=== PATIENT | male | born 1935 | race Caucasian/White ===

== ENCOUNTER 2022-12-27 05:46 | Observation (INO) | payer MEDICARE, OTHER, SELFPAY ==
[2022-12-27] VITALS (38 sets, daily range): BP systolic 97–147; BP diastolic 61–86; PULSE 64–86; RESP 11–27; TEMP 36.4–37; O2SAT 93–100; BMI 25.8; BMI 27.0
--- NOTE | 2022-12-27 06:06 | PC.NURSE ---
Patient c/o chest pain since last night. states it was bothering him all night and wouldn't let him sleep. denies any nausea, vomiting, diphoresis. pain has since resolved but states he cannot relax. denies any radiation into extremities or numbness, slight tingling in left hand states he thinks it feels a little funny. denies any urinary issues. no swelling of extremities. denies cardiac hx. denies any recent illnesses
--- NOTE | 2022-12-27 06:11 | ECG_ITS ---
The [facility] Test Date: 2022-12-27 Pat Name: Bry Rodriguez Department: Room: - Gender: Male [employer]: : 1935 Requested By: MED TUCKER Order Number: [id number] Reading MD: KEYONA GTZ Measurements Intervals [place] Rate: 77 P: 57 AR: 168 QRS: -42 QRSD: 78 T: 38 QT: 378 QTc: 409 Interpretive Statements 1100 Sinus rhythm 3234 Anteroseptal myocardial infarction, age undetermined 7200 Abnormal left axis deviation 8102 Low QRS voltage in chest leads 9150 abnormal ECG No previous ECG available for comparison Electronically Signed On 12-29-2022 18:37:22 EDT by KEYONA GTZ
--- NOTE | 2022-12-27 06:11 | XR_ITS ---
The [address] [address] Patient Name: JAE LENZ MRN: [id number] date: 1935 Sex: M Assigned Patient Location: ER Current Patient Location: ER Accession/Order Number: [id number] Exam Date: 12/27/2022 06:40 Report Date: 12/27/2022 06:52 At the request of: MEENAKSHI MARKER Procedure: XR chest 1V EXAMINATION: XR chest 1V HISTORY: CP ; acute chest pain COMPARISON: No relevant comparison available. FINDINGS: LUNGS: No appreciable infiltrates. Surgical clips project over lower right lung base. Small calcified granuloma within lateral left midlung. VASCULATURE: No increased pulmonary vasculature. PLEURA: No pneumothorax, effusion, or pleural thickening. CARDIAC: No cardiomegaly or cardiac silhouette abnormality. MEDIASTINUM: No visible mass or adenopathy. BONES: No fracture or visible bone lesion. OTHER: Negative. XR/XR chest 1V IMPRESSION: 1. No acute cardiopulmonary process. Electronically authenticated by: LUIS MARLEY Date: 12/27/2022 06:52
--- NOTE | 2022-12-27 06:16 | ED.CHESTPAI1 ---
HPI - Chest Pain General Chief Complaint: Chest Pain Stated Complaint: CHEST PAIN Time Seen by Provider: 12/27/22 05:56 Source: patient Mode of arrival: Wheelchair History of Present Illness HPI narrative: His 87-year-old male presents for evaluation of chest tightness. The patient states that he has not been to sleep all night he cause he could not relax due to this tightness in his chest. He denies any radiation into his arm back or jaw but when pressed he said his left hand does feel kind of funny. When I asked him what funny meant he said kind of tingly. He denies any shortness of breath dizziness or diaphoresis. He has no abdominal pain. He has some low back pain which is chronic in nature. He denies a history of coronary artery disease, tobacco use or alcohol use. The patient's daughter caught him to the emergency department and gave him 325 mg aspirin prior to arrival. At the time of my exam he denies that he is having any chest pain. He states he just could not get comfortable enough to sleep which bothered him. His Significant other and daughter accompanied him to the emergency department and was able to provide additional history. According to his significant other, last Friday they were doing their usual routine of exercising and then going to eat at [employer]. The patient went into the bathroom about [place] and came out and was very pale and weak. His girlfriend drove him home and on the way home he started becoming nauseated and had multiple episodes of vomiting. Those symptoms only lasted 1 day but the patient has been having episodes where he is just wiped out during the day and other days he is alert active and at his normal energy level. He also had 2 stents placed in a [facility] over 11 years ago. Related Data Home Medications Medication Instructions Recorded Confirmed atorvastatin 80 mg tablet mg 12/27/22 carvedilol 3.125 mg tablet mg 12/27/22 clopidogrel 75 mg tablet mg 12/27/22 fluoxetine 20 mg capsule mg 12/27/22 lisinopril 5 mg tablet mg 12/27/22 Allergies Allergy/AdvReac Type Severity Reaction Status Date / Time No Known Drug Allergies Allergy Verified 12/27/22 05:58 Review of Systems ROS Status of ROS 10 or more systems reviewed and unremarkable except as noted in history and below PFSH PFS Social History Smoking status: Never smoker Exam Narrative Exam Narrative: Nurses note and vital signs reviewed and patient is not hypoxic. General: The patient appears well and in no apparent distress. Patient is resting comfortably on cart. Skin: Warm, dry, no pallor noted. There is no rash noted. Head: Normocephalic, atraumatic Eye: Normal conjunctiva, no drainage, EOMI. PERRL Ears, Nose, Mouth, and Throat: oral mucosa is moist. Nares patent. Cardiovascular: Regular Rate and Rhythm S1S2, pulses are brisk and equal bilaterally, no chest wall tenderness, skin rash or crepitus Respiratory: Patient is in no distress, no accessory muscle use, lungs are clear to auscultation, no wheezing, rales or rhonchi Back: non-tender, no CVA tenderness bilaterally to percussion. GI: Normal bowel sounds, no tenderness to palpation, no masses appreciated. No rebound, guarding, or rigidity noted. no pulsatile masses or abdominal bruits appreciated Musculoskeletal: The patient has no evidence of calf tenderness, no pitting edema, symmetrical pulses noted bilaterally Neurological: A&O x4, normal speech, no focal deficits Psychiatric: Cooperative Constitutional Vital Signs, click to edit/add: Last Vital Signs Temp 97.6 F 12/27/22 05:50 Pulse 79 12/27/22 05:50 Resp 16 12/27/22 05:50 BP 128/79 12/27/22 05:50 Pulse Ox 100 12/27/22 05:50 O2 Del Method Room Air 12/27/22 05:50 Course Vital Signs Vital signs: Vital Signs Temperature 97.6 F 12/27/22 05:50 Pulse Rate 79 12/27/22 05:50 Respiratory Rate 16 12/27/22 05:50 Blood Pressure 128/79 12/27/22 05:50 Pulse Oximetry 100 12/27/22 05:50 Oxygen Delivery Method Room Air 12/27/22 05:50 Temperature 97.6 F 12/27/22 05:50 Pulse Rate 79 12/27/22 05:50 Respiratory Rate 16 12/27/22 05:50 Blood Pressure 128/79 12/27/22 05:50 Pulse Oximetry 100 12/27/22 05:50 Oxygen Delivery Method Room Air 12/27/22 05:50 MDM - Chest Pain MDM Narrative Medical decision making narrative: This 87-year-old male is brought emergency department by his daughter and accompanied by his female networking administrator for evaluation of chest pain. The pain started last night and the patient describes it as tightness. He denies any radiation but when pressed states that his left arm does feel funny. He denies any shortness of breath dizziness or syncope. He did have an episode approximately one week ago after a busy day when he became extremely weak and had multiple episodes of vomiting. That only lasted 1 day. His daughter states that some days he is very weak and can barely perform his ADLs and at other times he has active and alert. Last night the patient could not sleep because he states his chest tightness could not let him relax and he felt like something was banging on his right leg. He does not have the sensation that anything is banging on his right leg at this time. He was given 324 mg baby aspirin prior to arrival. On arrival an EKG was placed it was a sinus rhythm at 77 bpm with a left axis and Q waves in leads 3 and aVF and V1, V2, V3. He has a normal troponin, CBC w diff and Comprehensive metabolic profile. D dimer is mildly elevated. CT angio of chest, abdomen and pelvis is ordered. He will be signed out to the incoming physician at 7am. Lab Data Labs: Lab Results 12/27/22 Range/Units 06:00 WBC 6.6 (4.0-11.0) 10^3/uL RBC 4.24 L (4.70-6.10) 10^6/uL Hgb 13.3 L (14.0-18.0) g/dL Hct 39.1 L (42.0-54.0) % MCV 92.2 (80.0-94.0) fL MCH 31.4 (25.9-34.0) pg MCHC 34.0 (29.9-35.2) g/dL RDW 13.5 (11.0-15.0) % Plt Count 205 (150-450) 10^3/uL MPV 8.9 L (9.5-13.5) fL Neut % (Auto) 60.1 (43.0-75.0) % Lymph % (Auto) 28.9 (20.5-60.0) % Greenlee % (Auto) 8.5 (1.7-12.0) % Eos % (Auto) 1.8 (0.9-7.0) % Baso % (Auto) 0.5 (0.2-2.0) % Neut # (Auto) 3.9 (1.4-6.5) 10^3/uL Lymph # (Auto) 1.9 (1.2-3.8) 10^3/uL Greenlee # (Auto) 0.6 (0.3-0.8) 10^3/uL Eos # (Auto) 0.1 (0.0-0.7) 10^3/uL Baso # (Auto) 0.0 (0.0-0.1) 10^3/uL Abs Immat Gran (auto) 0.01 (0.00-0.03) 10^3/uL Imm/Tot Granulo (auto) 0.2 (0.0-0.5) % PT 11.2 (9.0-11.6) sec INR 1.06 D-Dimer 0.76 H* (<=0.59) mg/L FEU Sodium 139 (136-145) mmol/L Potassium 4.2 (3.5-5.1) mmol/L Chloride 101 (98-107) mmol/L Carbon Dioxide 28.0 (21.0-32.0) mmol/L Anion Gap 14.2 BUN 25.0 H (7.0-18.0) mg/dL Creatinine 1.35 H (0.70-1.30) mg/dL Est GFR ( Amer) >60 (>=60) Est GFR (Non-Af Amer) 50 L (>=60) BUN/Creatinine Ratio 18.5 Glucose 139 H (74-106) mg/dL Calcium 8.9 (8.5-10.1) mg/dL Total Bilirubin 0.5 (0.2-1.0) mg/dL AST 18 (15-37) U/L ALT 26 (16-63) U/L Alkaline Phosphatase 77 (46-116) U/L Troponin I High Sens 16.1 (4.0-76.1) pg/mL NT-Pro-B Natriuret Pep 129.0 (<=1800.0) pg/mL Total Protein 7.5 (6.4-8.2) g/dL Albumin 3.8 (3.4-5.0) g/dL Globulin 3.7 g/dL Albumin/Globulin Ratio 1.0 ECG Data Attestation: I personally reviewed and interpreted this ECG as follows: (Sinus rhythm at 77 beats for minute, Q wave noted in lead 3 and aVF, and V1, V2, V3, no acute ST segment elevation or T wave inversion) Heart Score History: Moderatly Suspicious ECG: Normal Age: >65 years Risk Factors: 1 or 2 Risk Factors Troponin: <Normal Limit Total Heart Score Recommendations & Risks:: 4 Discharge Plan Discharge Chief Complaint: Chest Pain Clinical Impression: Chest pain Patient Disposition: Still a Patient Prescriptions / Home Meds: No Action atorvastatin 80 mg tablet clopidogrel 75 mg tablet carvedilol 3.125 mg tablet lisinopril 5 mg tablet fluoxetine 20 mg capsule Referrals: MED TUCKER [Primary Care Provider] - 1 week
[2022-12-27 06:19] LABS: Basophils Percent Auto 0.5 % (0.2-2.0); Eosinophils Absolute Auto 0.1 10^3/uL (0.0-0.7); Eosinophils Percent Auto 1.8 % (0.9-7.0); Hematocrit 39.1 % (42.0-54.0); Hemoglobin 13.3 g/dL (14.0-18.0); Immature Granulocytes Abs Auto 0.01 10^3/uL (0.00-0.03); Immature Granulocytes Pct Auto 0.2 % (0.0-0.5); Lymphocytes Absolute Auto 1.9 10^3/uL (1.2-3.8); Lymphocytes Percent Auto 28.9 % (20.5-60.0); Mean Corpuscular Hemoglobin 31.4 pg (25.9-34.0); Mean Corpuscular Volume 92.2 fL (80.0-94.0); Mean Platelet Volume 8.9 fL (9.5-13.5); Monocytes Absolute Auto 0.6 10^3/uL (0.3-0.8); Monocytes Percent Auto 8.5 % (1.7-12.0); Neutrophils Absolute Auto 3.9 10^3/uL (1.4-6.5); Neutrophils Percent Auto 60.1 % (43.0-75.0); Platelet Count 205 10^3/uL (150-450); Red Blood Count 4.24 10^6/uL (4.70-6.10); Red Cell Distribution Width 13.5 % (11.0-15.0); White Blood Count 6.6 10^3/uL (4.0-11.0)
[2022-12-27 06:34] LABS: Alanine Aminotransferase 26 U/L (16-63); Albumin Level 3.8 g/dL (3.4-5.0); Alkaline Phosphatase 77 U/L (46-116); Anion Gap 14.2; Aspartate Amino Transferase 18 U/L (15-37); BUN Creatinine Ratio 18.5; Bilirubin Total 0.5 mg/dL (0.2-1.0); Calcium 8.9 mg/dL (8.5-10.1); Chloride 101 mmol/L (98-107); Estimated GFR (African America >60 (>=60); Estimated GFR (Non-African Ame 50 (>=60); Globulin 3.7 g/dL; Glucose 139 mg/dL (74-106); INR 1.06; Potassium 4.2 mmol/L (3.5-5.1); Prothrombin Time 11.2 sec (9.0-11.6); Sodium 139 mmol/L (136-145); Total Protein 7.5 g/dL (6.4-8.2)
[2022-12-27] MEDS: NITROGLYCERIN 0.4 MG BOTTLE PO (06:34)
[2022-12-27] MEDS: ACETAMINOPHEN 325 MG TABLET 650 MG PO (06:34)
[2022-12-27 06:40] LABS: Troponin I High Sensitivity 16.1 pg/mL (4.0-76.1)
[2022-12-27 06:43] LABS: D Dimer 0.76 mg/L FEU (<=0.59)
--- NOTE | 2022-12-27 06:50 | CT_ITS ---
[address] [address] Patient Name: JAE LENZ MRN: [id number] date: 1935 Sex: M Assigned Patient Location: ER Current Patient Location: Accession/Order Number: [id number] Exam Date: 12/27/2022 07:16 Report Date: 12/27/2022 08:19 At the request of: MEENAKSHI MARKER Procedure: CT angio chest EXAMINATION: CT angio chest, CT angio abdomen pelvis HISTORY: CP ; chest pain COMPARISON: No relevant comparison available. TECHNIQUE: After obtaining the patient's consent, CT images of the chest, abdomen and pelvis were obtained with non-ionic intravenous contrast material. Axial, Coronal, and Sagittal images. Multi-planar reformatted/3-D images were created to optimize visualization of vascular anatomy. Dose reduction techniques were achieved by using automated exposure control and/or adjustment of mA and/or kV according to patient size and/or use of iterative reconstruction technique. FINDINGS: PULM VASC: No pulmonary embolism or abnormal opacity. LUNGS: Mild opacities within the dependent lung regions favoring atelectasis over infiltrates. A few scattered calcified granulomas. PLEURA: No mass, effusion, or pneumothorax. ALBERTINA: No mass or adenopathy. MEDIASTINUM: No mass or adenopathy. CARDIAC: Mild cardiomegaly. No pericardial effusion. CHEST WALL: No mass or axillary adenopathy. AORTA/VASCULAR: No aneurysm or dissection. CELIAC ARTERY: Normal celiac vessels. SMA: Normal mesenteric vessels. RENAL ARTERIES: Mild atherosclerotic narrowing at their origins. LIVER: No enlargement, atrophy, abnormal density, or significant focal lesion. BILIARY: No visible dilatation or calcification. PANCREAS: No lesion, fluid collection, ductal dilatation, or atrophy. SPLEEN: No enlargement or focal lesion. ADRENALS: No mass or enlargement. KIDNEYS: Cortical thinning bilaterally. Complex left renal cysts, but favoring benign etiology. A few small nonobstructing calcifications. BOWEL/MESENTERY: Large hiatal hernia. No visible mass, obstruction, or bowel wall thickening. AORTA: RETROPERITONEUM: No mass or adenopathy. LYMPHNODES: No lymphadenopathy. BLADDER: No stones or focal wall thickening. PELVIC ORGANS: Appropriate for age. ABDOMINAL WALL: No mass or hernia. BONES: Left convex curvature of lumbar spine. Intervertebral disc spacers L2-3, L3-4, L4-5. Marked disc space narrowing L1-2, L5-S1. 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 Posterior decompression is removal of the majority the posterior elements involving L2-3-4. OTHER: Negative. CT/CT angio chest IMPRESSION: 1. No pulmonary embolism or acute chest findings to account for patient's symptoms. Chronic changes noted above. 2. No aortic dissection or aneurysm. 3. Nonobstructing nephrolithiasis; incidental complex cysts, and age-related cortical thinning. 4. No acute abdominal or pelvic findings to account for patient's symptoms. 5. Marked degenerative changes and prior surgical changes of the lumbar spine. No appreciable acute findings. Electronically authenticated by: LUIS MARLEY Date: 12/27/2022 08:19
--- NOTE | 2022-12-27 06:50 | CT_ITS ---
[address] [address] Patient Name: JAE LENZ MRN: [id number] date: 1935 Sex: M Assigned Patient Location: ER Current Patient Location: Accession/Order Number: [id number] Exam Date: 12/27/2022 07:16 Report Date: 12/27/2022 08:19 At the request of: MEENAKSHI MARKER Procedure: CT angio abdomen pelvis EXAMINATION: CT angio chest, CT angio abdomen pelvis HISTORY: CP ; chest pain COMPARISON: No relevant comparison available. TECHNIQUE: After obtaining the patient's consent, CT images of the chest, abdomen and pelvis were obtained with non-ionic intravenous contrast material. Axial, Coronal, and Sagittal images. Multi-planar reformatted/3-D images were created to optimize visualization of vascular anatomy. Dose reduction techniques were achieved by using automated exposure control and/or adjustment of mA and/or kV according to patient size and/or use of iterative reconstruction technique. FINDINGS: PULM VASC: No pulmonary embolism or abnormal opacity. LUNGS: Mild opacities within the dependent lung regions favoring atelectasis over infiltrates. A few scattered calcified granulomas. PLEURA: No mass, effusion, or pneumothorax. ALBERTINA: No mass or adenopathy. MEDIASTINUM: No mass or adenopathy. CARDIAC: Mild cardiomegaly. No pericardial effusion. CHEST WALL: No mass or axillary adenopathy. AORTA/VASCULAR: No aneurysm or dissection. CELIAC ARTERY: Normal celiac vessels. SMA: Normal mesenteric vessels. RENAL ARTERIES: Mild atherosclerotic narrowing at their origins. LIVER: No enlargement, atrophy, abnormal density, or significant focal lesion. BILIARY: No visible dilatation or calcification. PANCREAS: No lesion, fluid collection, ductal dilatation, or atrophy. SPLEEN: No enlargement or focal lesion. ADRENALS: No mass or enlargement. KIDNEYS: Cortical thinning bilaterally. Complex left renal cysts, but favoring benign etiology. A few small nonobstructing calcifications. BOWEL/MESENTERY: Large hiatal hernia. No visible mass, obstruction, or bowel wall thickening. AORTA: RETROPERITONEUM: No mass or adenopathy. LYMPHNODES: No lymphadenopathy. BLADDER: No stones or focal wall thickening. PELVIC ORGANS: Appropriate for age. ABDOMINAL WALL: No mass or hernia. BONES: Left convex curvature of lumbar spine. Intervertebral disc spacers L2-3, L3-4, L4-5. Marked disc space narrowing L1-2, L5-S1. 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 Posterior decompression is removal of the majority the posterior elements involving L2-3-4. OTHER: Negative. CT/CT angio abdomen pelvis IMPRESSION: 1. No pulmonary embolism or acute chest findings to account for patient's symptoms. Chronic changes noted above. 2. No aortic dissection or aneurysm. 3. Nonobstructing nephrolithiasis; incidental complex cysts, and age-related cortical thinning. 4. No acute abdominal or pelvic findings to account for patient's symptoms. 5. Marked degenerative changes and prior surgical changes of the lumbar spine. No appreciable acute findings. Electronically authenticated by: LUIS MARLEY Date: 12/27/2022 08:19
[2022-12-27] MEDS: ONDANSETRON PF 4 MG/2 ML VIAL IV (07:04)
[2022-12-27] MEDS: 0.9 % SODIUM CHLORIDE 1,000 ML 125 ML IV ×2 (07:05→11:53)
[2022-12-27] MEDS: 0.9 % SODIUM CHLORIDE 500 ML IV (07:05)
--- NOTE | 2022-12-27 07:41 | PC.NURSE ---
pt back from radiology at this time, states chest pain is now completely gone. Informed Dr Zazueta
[2022-12-27 09:18] LABS: Troponin I High Sensitivity 14.5 pg/mL (4.0-76.1)
--- NOTE | 2022-12-27 10:28 | CA_ITS ---
Patient: JAE LENZ Exam Date: 12/27/2022 : 1935 Gender:M Ordering : SAURABH LE . Admission #: [id number] Family : DR MED TUCKER M.D. Order #: [id number] CLICK HERE TO VIEW EXAM ECHOCARDIOGRAM REPORT PROCEDURE: CA ECHO DOPPLER COMPLETE INDICATIONS: chest pain, history of CAD COMPARISON: None. DESCRIPTION: COMPLETE ECHOCARDIOGRAM Real-time transthoracic echocardiography with 2D, M-mode, spectral and color flow Doppler performed. QUALITY: Technical quality was good. LEFT VENTRICLE: Normal chamber size. Mild concentric left ventricular hypertrophy. LV EF: Global left ventricular systolic function is normal. Calculated left ventricular ejection fraction is 58% DIASTOLIC: Diastolic function is indeterminate. ATRIAL SEPTUM: Inadequately seen. LEFT ATRIUM: Mild dilatation. RIGHT ATRIUM: Moderate dilatation. RIGHT VENTRICLE: Normal chamber size. Normal right ventricular systolic function. TRICUSPID VALVE: Normal mobility and thickness. No stenosis with trivial regurgitation. No evidence of pulmonary hypertension. RVSP 30mmHg MITRAL VALVE: Normal mobility and thickness. No evidence of mitral valve stenosis. There is no mitral annular calcification. Trivial mitral regurgitation. AORTIC VALVE: Normal trileaflet appearance. Mildly calcified aortic valve. No evidence of aortic valve stenosis. DVI 0.5, DIAN 1.8cm2. Mild aortic regurgitation. AORTIC ROOT: Mildly dilated. Mild dilatation of the ascending aorta measuring 3.8cm. PULMONIC VALVE: Normal thickness and mobility. No stenosis. Trivial regurgitation. PERICARDIUM: Anterior free space; trivial effusion versus fat pad. IVC: Collapses with inspirations. Normal size. CONCLUSION: 1. Global left ventricular systolic function is normal; visually estimated ejection fraction is 55 to 60% 2. Mild left ventricular hypertrophy 3. Diastolic function is indeterminate 4. Biatrial enlargement 5. The right ventricle is normal in size and systolic function 6. Mild aortic valve regurgitation 7. Mildly enlarged aortic root and ascending aorta 8. Anterior free space; trivial effusion versus fat pad Adult Echocardiography Procedure Report Left Ventricle LVEDD (3.7 - 5.6 cm): 3.97 cm LVESD (2.2 - 4.0 cm): 2.58 cm LVIVS thickness (0.6 - 1.2 cm): 1.20 cm LVPW thickness (0.5 - 1.0 cm): 1.34 cm e': 0.08 m/s E - e': 6.19 LVOT Max Gradient: 1.62 mm[Hg] LVOT Area (cm2): 0.64 m/s Peak Velocity (LVOT): 0.64 m/s Mean Velocity (LVOT): 0.42 m/s LVOT Diameter 2.18 cm Left Ventricular Ejection Fraction: 57.81 % Left Atrium LA Volume Index (2D A2C): 37.03 ml/m2 Left Atrium Systolic Dimension: 2.87 cm Mitral Valve MV E to A Ratio: 0.55 Mitral Valve A-Wave Peak Velocity: 0.86 m/s Mitral Valve E-Wave Peak Velocity: 0.47 m/s Right Ventricle RV Internal Diastolic Dimension: 3.58 cm Aorta AO Root Diam: 3.72 cm Ascending Ao Diam: 3.83 cm Aortic Valve AoV Area (Peak Junior): 1.86 cm2, 1.84 cm2 AoV Area (VTI): 1.86 cm2, 1.82 cm2 Peak Velocity(Antegrade Flow): 1.30 m/s, 1.26 m/s Peak Gradient(Antegrade Flow): 6.72 mm[Hg], 6.39 mm[Hg] Mean Velocity(Antegrade Flow): 0.88 m/s, 0.88 m/s Mean Gradient(Antegrade Flow): 3.51 mm[Hg], 3.55 mm[Hg] Velocity Time Integral: 29.39 cm, 28.22 cm Tricuspid Valve Peak Velocity (Regurgitant Flow): 2.59 m/s, 2.25 m/s, 2.45 m/s Pulmonic Valve Mean Gradient: 1.25 mm[Hg], 1.65 mm[Hg] Mean Velocity: 0.52 m/s, 0.60 m/s Peak Velocity: 0.88 m/s Peak Gradient: 2.60 mm[Hg], 3.62 mm[Hg] Right Atrium Right Atrium Systolic Pressure: 50.62 ml, 50.62 ml Dictated by: Christy Rodriguez M.D. on 12/27/2022 at 15:51 Approved by: Christy Rodriguez M.D. on 12/27/2022 at 15:56
--- NOTE | 2022-12-27 11:10 | PM.HP ---
H&P: HPI History of Present Illness Chief complaint: CHEST PAIN Narrative: patient is a very pleasant 87-year-old male who presented to the Emergency Room with an episode of chest tightness. He presented last night with feeling of chest tightness and not being able to sleep. He denied any radiation into his arm back or jaw but does report his left hand felt different. He denies any shortness of breath any chest pain at the time of admission his chest pain seemed to resolve with a dose of nitroglycerin and morphine. He has a history of a transient ischemic attack but never seek hospitalization for this occurred about a year ago. He has a history of coronary artery disease with stents that were placed greater than ten years ago, and denies seeing a dynamometer tester engine recently for a stress test heart or further workup. He does follow regularly with Dr. Geronimo. Lately both significant other and daughter report he has felt more weak at times happy to take multiple breaks throughout the day and just appears wiped out by the end of the day. He reports compliance with his medications. Patient states he is ready to go home. Review of Systems ROS Narrative ROS: a complete review of systems were reviewed with patient and are positive as below or listed in History of Chief Complaint. General: no fever, chills, night sweats Head: no headache, trauma, visual changes, nausea or vomiting Skin: no reported rashes, itching or sores Eyes: no blurriness of vision Ears: no reported hearing loss, vertigo, earache, or tinnitus Throat: no sore throat, hoarseness, swelling of neck, or tongue pain Heart: chest pain, mid sternal, no radiation Lungs: no shortness of breath or cough GI: no diarrhea or vomiting/nausea Urinary: no urinary urgency, frequency or pain Neuro: no numbness or tingling HEM: no bleeding issues or bruising ENDO: no thyroid problems Psych: no anxiety or depression [facility] Medical History (Updated 12/27/22 @ 12:03 by Mary Lindo DO) Family History Mother Family history of CHF (congestive heart failure) Family history of myocardial infarction Social History Smoking status: Never smoker Meds Home Medications and Allergies Home Medications Medication Instructions Recorded Confirmed Type atorvastatin 80 mg tablet 80 mg PO QPM 12/27/22 12/27/22 History carvedilol 3.125 mg tablet mg 12/27/22 History clopidogrel 75 mg tablet mg 12/27/22 History fluoxetine 20 mg capsule mg 12/27/22 History lisinopril 5 mg tablet mg 12/27/22 History omeprazole 20 mg capsule,delayed 20 mg PO DAILY 12/27/22 12/27/22 History release Allergies Allergy/AdvReac Type Severity Reaction Status Date / Time No Known Drug Allergies Allergy Verified 12/27/22 05:58 Exam Narrative Exam Narrative: General: Patient is alert, and oriented to person, place and time with normal affect, proper hygiene Skin: no visible rashes, or ulcers Head: atraumatic, acephalic Eyes: PERRLA, no nystagmus present, conjunctiva clear, no scleral icterus Ears: normal Tympanic Membrane, normal gross auditory acuity Nose: symmetric, no discharge, no maxillary or frontal sinus tenderness Mouth/Throat: no erythema, exudate, or tonsillar enlargement Neck: no masses palpated, normal thyroid, no JVD or audible carotid bruits Heart: Normal rate and rhythm, no murmurs/rubs/gallops Lungs: no audible wheezes, crackles and normal breath sounds all lung lundberg Abdomen: Normal audible bowel sounds, no distension, No palpable masses, no organomegaly, no rebound/guarding/ or rigidity Musculoskeletal:ROM is limited due to being in hospital bed, no swelling bilateral lower extremities Lymph: no supraclavicular, axillary, or anterior/posterior cervical adenopathy Neuro: CN II-X grossly intact, normal sensation upper and lower extremities Constitutional Vital Signs, click to edit/add: Last Vital Signs Temp 98.6 F 12/27/22 10:23 Pulse 70 12/27/22 10:28 Resp 16 12/27/22 10:23 BP 123/81 12/27/22 10:23 Pulse Ox 98 12/27/22 10:23 O2 Del Method Room Air 12/27/22 10:23 Results Labs Labs: Short CBC 12/27/22 Range/Units 06:00 WBC 6.6 (4.0-11.0) 10^3/uL Hgb 13.3 L (14.0-18.0) g/dL Hct 39.1 L (42.0-54.0) % Plt Count 205 (150-450) 10^3/uL BMP 12/27/22 06:00 Sodium 139 Potassium 4.2 Chloride 101 Carbon Dioxide 28.0 BUN 25.0 H Creatinine 1.35 H Glucose 139 H Calcium 8.9 Liver Function 12/27/22 Range/Units 06:00 Total Bilirubin 0.5 (0.2-1.0) mg/dL AST 18 (15-37) U/L ALT 26 (16-63) U/L Alkaline Phosphatase 77 (46-116) U/L Albumin 3.8 (3.4-5.0) g/dL Assessment and Plan Assessment and Plan (1) Chest pain: Assessment and Plan: cardiac troponins ?2 have been negative we'll repeat a 3rd. D-dimer was positive patient had a CT of the chest which was negative for any PE or acute process. Chest x-ray was negative. EKG showed no acute changes. Patient was admitted to telemetry for further evaluation. We'll check echocardiogram. Patient does not establish with a dynamometer tester engine will get an appointment for urinary tract infection and see cardiology for outpatient stress test. Continue aspirin and Plavix and statin medication. Recheck lipid panel, thyroid-stimulating hormone, hemoglobin A1c. Patient received aspirin and nitroglycerin and morphine which all seem to resolve chest pain. With history of stents being greater than ten years would but most definitely benefit from an outpatient stress test and further workup. (2) Presence of stent in coronary artery in patient with coronary artery disease: Assessment and Plan: echocardiogram today, continue aspirin and Plavix and statin (3) Hypertension: Assessment and Plan: continue home medications (4) Hyperlipidemia: Assessment and Plan: recheck lipids continue home medications Plan patient is a full code Will continue Lovenox for deep vein thrombosis prophylaxis She has an observation status and cardiac workup is negative will follow-up closely with cardiology for outpatient Cardiolite stress test evaluation
[2022-12-27 11:13] LABS: Estimated Average Glucose 131 mg/dL; Glycohemoglobin A1C 6.2 % (4.5-6.2)
[2022-12-27 11:22] LABS: Chol HDL Ratio 4.2; Cholesterol 181 mg/dL (<=200); HDL Cholesterol 43 mg/dL (40-60); Magnesium 1.7 mg/dL (1.8-2.4); Triglycerides 261 mg/dL (<=150); VLDL CHOLESTEROL 52.2 mg/dL
[2022-12-27] MEDS: ENOXAPARIN SODIUM 40 MG/0.4 ML SYRINGE SUBQ (11:34)
[2022-12-27] MEDS: CLOPIDOGREL BISULFATE 75 MG TABLET PO (13:03)
[2022-12-27] MEDS: CARVEDILOL 3.125 MG TABLET PO (13:03)
[2022-12-27] MEDS: FLUOXETINE HCL 20 MG CAPSULE PO (13:03)
[2022-12-27] MEDS: LISINOPRIL 5 MG TABLET PO (13:04)
[2022-12-27] MEDS: OMEPRAZOLE 20 MG CAPSULE.DR PO (13:04)
--- NOTE | 2022-12-27 13:53 | SWNOTE1 ---
MARU met with pt, pt's daughter, and pt's friend. Pt has a rollator and cane at home that he uses if needed. Pt voiced he does stay active and he could not sleep last night. Had some chest pain and some pain in his leg. Pt voices he is feeling much better. Pt denies having any dc needs at this time. SW reviewed the COOL form with pt. Pt voices understanding and had no questions. Pt had his daughter sign as he was eating lunch. Copy placed in chart and original given to daughter. Pt's daughter did bring in POA paperwork, but it a general POA. She will bring in healthcare POA tomorrow.
[2022-12-27 15:22] LABS: Troponin I High Sensitivity 15.1 pg/mL (4.0-76.1)
--- NOTE | 2022-12-27 17:24 | PM.DS1 ---
DS: Providers Provider Date of admission: 12/27/22 10:08 Primary care physician: MED TUCKER Admitting clinician: Mary Lindo Consults: 12/27/22 10:28 Occupational Therapy Eval and Treat Routine Reason for consultation: weakness Has provider been notified: No Physical Therapy Eval and Treat Routine Reason for consultation: weakness Has provider been notified: No Discharging clinician: Mary Lindo DS: Diagnosis Discharge Diagnosis (1) Chest pain: (2) Presence of stent in coronary artery in patient with coronary artery disease: (3) Hypertension: (4) Hyperlipidemia: DS: Summary Hospital Course Hospital Course: echocardiogram showed normal ejection fraction of 55-60 percent with some mild left ventricular hypertrophy and some biatrial enlargement.chest CTA showed no acute findings.normal CBC CMP and coagulations. Slight elevation of creatinine at 1.35, hemoglobin A1c was 6.2, lipid panel was within normal limits with exception of elevated triglycerides at two sixty-one. Troponins normal ?3 and normal proBNP. Patient has been chest pain-free while admitted there is been no events on telemetry and EKG showed no acute findings. Patient would like to go home there has been no changes to his home medications. He has a follow-up next week with his primary care provider and we have also provided him a follow-up appointment with cardiology to establish care and to decide on doing an outpatient stress test. Patient and family aware and agree with plan. Return to the Emergency Room with any worsening symptoms. Status at Discharge Functional status at discharge: uses cane/walker Time Spent with Patient Time attestation: Total time spent providing and/or coordinating discharge services: Time spent: less than 30 minutes Exam Narrative Exam Narrative: no changes in physical exam at the time of discharge please see H and P dated 12/27/22 Constitutional Vital Signs, click to edit/add: Last Vital Signs Temp 97.7 F 12/27/22 16:39 Pulse 68 12/27/22 16:39 Resp 16 12/27/22 16:39 BP 122/75 12/27/22 16:39 Pulse Ox 97 12/27/22 16:39 O2 Del Method Room Air 12/27/22 16:39 DS: Data Data Completed and Pending Labs on day of discharge: Labs from last 24 hours 12/27/22 12/27/22 12/27/22 14:46 08:53 06:00 WBC 6.6 RBC 4.24 L Hgb 13.3 L Hct 39.1 L MCV 92.2 MCH 31.4 MCHC 34.0 RDW 13.5 Plt Count 205 MPV 8.9 L Neut % (Auto) 60.1 Lymph % (Auto) 28.9 Lamar % (Auto) 8.5 Eos % (Auto) 1.8 Baso % (Auto) 0.5 Neut # (Auto) 3.9 Lymph # (Auto) 1.9 Lamar # (Auto) 0.6 Eos # (Auto) 0.1 Baso # (Auto) 0.0 Abs Immat Gran (auto) 0.01 Imm/Tot Granulo (auto) 0.2 PT 11.2 INR 1.06 D-Dimer 0.76 H* Sodium 139 Potassium 4.2 Chloride 101 Carbon Dioxide 28.0 Anion Gap 14.2 BUN 25.0 H Creatinine 1.35 H Est GFR ( Amer) >60 Est GFR (Non-Af Amer) 50 L BUN/Creatinine Ratio 18.5 Glucose 139 H Estimat Average Glucose 131 Hemoglobin A1c 6.2 Calcium 8.9 Magnesium 1.7 L Total Bilirubin 0.5 AST 18 ALT 26 Alkaline Phosphatase 77 Troponin I High Sens 15.1 14.5 16.1 NT-Pro-B Natriuret Pep 129.0 Total Protein 7.5 Albumin 3.8 Globulin 3.7 Albumin/Globulin Ratio 1.0 Triglycerides 261 H Cholesterol 181 LDL Cholesterol, Calc 86.0 VLDL Cholesterol 52.2 HDL Cholesterol 43 Cholesterol/HDL Ratio 4.2 TSH 9.559 H Discharge Plan Discharge Disposition: Home Health Service Discharge Medications: Continued atorvastatin 80 mg tablet 80 mg PO QPM clopidogrel 75 mg tablet 75 mg PO DAILY carvedilol 3.125 mg tablet 3.125 mg PO Q12H lisinopril 5 mg tablet 5 mg PO DAILY fluoxetine 20 mg capsule 20 mg PO DAILY omeprazole 20 mg capsule,delayed release(DR/EC) 20 mg PO DAILY Activity: resume usual activities as tolerated Diet: advance to your usual diet Forms: Portal Instructions Follow Up Appointments: [facility] Cardiology FridayDecember [address] Tucker keep upcoming appointment for follow up.
--- NOTE | 2022-12-31 15:41 | CM.DCFOLLOWU ---
1st attempt discharge follow up call made by Benji Galaviz on 12/31/22, no answer at this time
--- NOTE | 2023-01-01 16:06 | CM.DCFOLLOWU ---
2nd attempt discharge follow up call made by Benji Galaviz on , no answer at this time.
--- NOTE | 2023-01-03 15:46 | CM.DCFOLLOWU ---
3 discharge follow up calls were attempted, no answer each time.
== END 2022-12-27 20:03 | disposition home health service (06) ==
LOC: ER 07:11 → ICU 10:11
PROVIDERS: Emergency Medicine; Admitting Provider Family Medicine; Emergency Provider Emergency Medicine; PCP Internal Medicine; Visit Provider Family Medicine
DX: R07.9 Chest pain, unspecified (principal); I10 Essential (primary) hypertension; E78.5 Hyperlipidemia, unspecified; I25.10 Atherosclerotic heart disease of native coronary artery without angina pectoris; Z95.5 Presence of coronary angioplasty implant and graft; Z86.73 Personal history of transient ischemic attack (TIA), and cerebral infarction without residual deficits; Z79.899 Other long term (current) drug therapy; Z79.02 Long term (current) use of antithrombotics/antiplatelets
CPT/HCPCS: 36415; 71045; 71275; 74174; 80053; 80061; 83036; 83735; 83880; 84443; 84484; 85025; 85378; 85610; 93005; 93306; 94761; 96372; 96374; 97161; 97165; 99285; G0378; Q9967

== ENCOUNTER 2023-01-21 06:30 | Outpatient (OUT) | payer MEDICARE, OTHER, SELFPAY | END 2023-01-21 06:31 | disposition home or self-care (01) | LOC: NM 06:30 | PROVIDERS: PCP Internal Medicine; Visit Provider Internal Medicine Cardiovascular Disease | DX: R07.9 Chest pain, unspecified (principal) ==

== ENCOUNTER 2023-01-21 08:42 | Emergency (ER) | payer MEDICARE, OTHER, SELFPAY ==
[2023-01-21] VITALS (10 sets, daily range): BP systolic 135–168; BP diastolic 80–96; PULSE 62–72; RESP 14–20; TEMP 36.4; O2SAT 95–98; BMI 26.5
--- NOTE | 2023-01-21 08:54 | ECG_ITS ---
[facility] Test Date: 2023-01-21 Pat Name: JAE LENZ Department: Room: - Gender: Male Department Head: : 1935 Requested By: MED TUCKER Order Number: [id number] Reading MD: KEYONA GTZ Measurements Intervals [place] Rate: 67 P: 57 [place]: 172 QRS: 1 QRSD: 74 T: 26 QT: 400 QTc: 415 Interpretive Statements 1100 Sinus rhythm 8102 Low QRS voltage in chest leads 9120 atypical ECG Compared to ECG 12/27/2022 05:56:36 Myocardial infarct finding no longer present Left-axis deviation no longer present Electronically Signed On 01-22-2023 7:09:19 EDT by KEYONA GTZ
--- NOTE | 2023-01-21 08:56 | ED.GENADUL1 ---
HPI - General Adult General Chief complaint: Head Injury Stated complaint: FALL Time Seen by Provider: 01/21/23 08:43 Source: patient Mode of arrival: Wheelchair Limitations: no limitations History of Present Illness HPI narrative: Patient was at the hospital for out-patient testing - he was supposed to get non-treadmill stress test. He was walking and lost his footing and fell - he apparently has foot drop resulting in some difficulty ambulating. He will often use a cane or walker but did not bring either into the building with him. He fell forward, onto the carpeted floor and struck his face, causing a laceration on his right eyebrow. No LOC. No extremity injuries or other complaints. He takes Plavix daily. Related Data Home Medications Medication Instructions Recorded Confirmed atorvastatin 80 mg tablet 80 mg PO QPM 12/27/22 01/21/23 carvedilol 3.125 mg tablet 3.125 mg PO Q12H 12/27/22 01/21/23 clopidogrel 75 mg tablet 75 mg PO DAILY 12/27/22 01/21/23 fluoxetine 20 mg capsule 20 mg PO DAILY 12/27/22 01/21/23 lisinopril 5 mg tablet 5 mg PO DAILY 12/27/22 01/21/23 omeprazole 20 mg capsule,delayed 20 mg PO DAILY 12/27/22 01/21/23 release Allergies Allergy/AdvReac Type Severity Reaction Status Date / Time No Known Drug Allergies Allergy Verified 12/27/22 05:58 [facility] Medical History (Updated 01/21/23 @ 10:00 by Jeri Nash) Prostate cancer ?C61 - Malignant neoplasm of prostate (ICD-10) Surgical History (Updated 01/21/23 @ 09:05 by Hudson Sagastume) History of appendectomy ?Z90.49 - Acquired absence of other specified parts of digestive tract (ICD-10) History of lumbar fusion ?Z98.1 - Arthrodesis status (ICD-10) History of tonsillectomy ?Z90.89 - Acquired absence of other organs (ICD-10) Family History Mother Family history of CHF (congestive heart failure) Family history of myocardial infarction Social History Smoking status: Never smoker Exam Narrative Exam Narrative: Nurses note and vital signs reviewed and patient is not hypoxic. afebrile General: The patient appears well and in no apparent distress. Patient is resting comfortably on cart. GCS = 15. Skin: Warm, dry, no pallor noted. Head: 1cm laceration to the right upper eyelid just below the level of the eyebrow. Remainder of the face and scalp are normocephalic, atraumatic Neck: Supple, trachea mid-line. Full ROM and no cervical spinal tenderness. Eyes: PERRLA, EOMI ENT: TMs clear, no hemotympanum detected, no blood in posterior oropharynx Cardiovascular: Regular Rate and Rhythm Respiratory: Patient is in no distress, no accessory muscle use, lungs are clear to auscultation, no wheezing, rales or rhonchi Chest Wall: no tenderness, no flail chest, contusion, abrasion, or signs of trauma. Back: No thoracic or lumbar tenderness to palpation. Negative straight leg raise bilaterally. Musculoskeletal: no sign of long bone fracture, no tenderness, no swelling. Pulses at femoral, DP, PT, and popliteal were 2+ bilaterally. Moves all four extremities in all modalities with 5/5 strength. GI: Normal bowel sounds, no tenderness to palpation, no masses appreciated. No rebound, guarding, or rigidity noted. Neurological: A&O x4, normal equal silk folder strength, normal finger to nose, normal speech, normal coordination, normal motor, normal sensory. Psychiatric: Cooperative Constitutional Vital Signs, click to edit/add: Last Vital Signs Temp 97.6 F 01/21/23 08:46 Pulse 64 01/21/23 10:10 Resp 20 01/21/23 10:10 BP 168/84 H 01/21/23 10:00 Pulse Ox 97 01/21/23 10:10 O2 Del Method Nasal Cannula 01/21/23 08:46 Course Vital Signs Vital signs: Vital Signs Temperature 97.6 F 01/21/23 08:46 Pulse Rate 72 01/21/23 08:46 Respiratory Rate 16 01/21/23 08:46 Blood Pressure 167/80 H 01/21/23 08:46 Pulse Oximetry 98 01/21/23 08:46 Oxygen Delivery Method Nasal Cannula 01/21/23 08:46 Temperature 97.6 F 01/21/23 08:46 Pulse Rate 64 10/24/23 10:10 Respiratory Rate 20 01/21/23 10:10 Blood Pressure 168/84 H 01/21/23 10:00 Pulse Oximetry 97 01/21/23 10:10 Oxygen Delivery Method Nasal Cannula 01/21/23 08:46 Medical Decision Making MDM Narrative Medical decision making narrative: Patient takes Plavix daily. He fell and struck his face/head on the carpeted floor. Patient sent for CT scans of the head/brain and cervical spine, which were negative for worrisome pathology, per radiologist. Right eyebrow laceration sutured closed. See procedure note above. Patient and family informed of results and we discussed diagnosis and follow up plan. Patient discharged home with instructions for the patient to take his meds as prescribed. They are going to reschedule the stress test. Imaging Data ct cerv spine, ct brain: Radiologist's impression: Patient Name: JAE LENZ MRN: [id number] date: 1935 Sex: M Assigned Patient Location: ER Current Patient Location: ED.MAIN Accession/Order Number: [id number] Exam Date: 01/21/2023 09:05 Report Date: 01/21/2023 09:37 At the request of: JERI NASH Procedure: CT cervical spine wo con EXAM: CT head/brain wo con, CT cervical spine wo con HISTORY: fall, head injury, Atrovent fall, eyebrow laceration. COMPARISON: CT head 11/29/2021. TECHNIQUE: Axial noncontrast CT imaging of the head and cervical spine was performed with coronal and sagittal reformats. This CT exam was performed using one or more of the following dose reduction techniques: Automated exposure control, adjustment of the MA and/or kV according to patient size, or use of iterative reconstruction technique. FINDINGS: CT head Calvarium/skull base: Tiny soft tissue contusion along the right eyebrow with associated focus of subcutaneous emphysema likely relating to known laceration not all visualized by CT.] Grossly intact without orbital hematoma within the [id number]. No evidence of acute fracture or destructive lesion. Mastoids and middle ears demonstrate no substantial mucosal disease. Paranasal sinuses: No air fluid levels. Brain: No acute intracranial hemorrhage. No acute large vascular territory infarct. Similar mild patchy hypoattenuation involving the supratentorial white matter. Minimal parenchymal volume loss. 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 This is stable from prior. No mass lesion or mass effect. No hydrocephalus. CT cervical spine Alignment: There is 2 mm anterolisthesis of C4 on C5 and trace anterolisthesis of C5 on C6. Straightening of the normal cervical lordosis. Vertebrae: Vertebral body heights are maintained. No fracture. Diffuse osteopenia. There is fusion of the left knee to C3 facet joints and right C2-C4 facet joints. Craniocervical junction: No focal abnormality. Degenerative changes: Mild to moderate degenerative changes of cervical spine with multilevel small posterior disc osteophyte complexes and moderate uncovertebral arthropathy. Multilevel moderate and/or advanced facet arthropathy with associated multilevel moderate to advanced right greater than left foraminal stenosis. This is most prominent at C4-C5 and C5-C6. 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 Visualized portion of lung apices are clear. IMPRESSION: 1. No acute intracranial process. If there is clinical concern for acute ischemia recommend MRI brain for further evaluation. 2. Similar senescent change detailed above. 3. Trace right periorbital soft tissue contusion with multivessel subcutaneous emphysema likely relating to laceration. No evidence for orbital hematoma. No calvarial/facial bone fracture within the [id number]. 4. No acute fracture or malalignment of the cervical spine. 5. Diffuse osteopenia. 6. Moderate degenerative change of the cervical spine. Electronically authenticated by: MOI BERTRAND Date: 01/21/2023 09:37 ECG Data Attestation: ?I have reviewed the pertinent ECG results. Interpretation: EKG interpretation: Emergency Department physician interpretation. Normal sinus rhythm at 67bpm. low QRS voltage and chest leads, normal intervals and no ST segment elevation or depression. Discharge Plan Discharge Chief Complaint: Head Injury Clinical Impression: Closed head injury, Facial laceration Patient Disposition: Home, Self-Care Time of Disposition Decision: 10:00 Prescriptions / Home Meds: No Action atorvastatin 80 mg tablet 80 mg PO QPM clopidogrel 75 mg tablet 75 mg PO DAILY carvedilol 3.125 mg tablet 3.125 mg PO Q12H lisinopril 5 mg tablet 5 mg PO DAILY fluoxetine 20 mg capsule 20 mg PO DAILY omeprazole 20 mg capsule,delayed release(DR/EC) 20 mg PO DAILY Instructions: Laceration (ED), Head Injury (ED) Stand Alone Forms: Portal Instructions Referrals: MED TUCKER [Primary Care Provider] - 1 week Discharge Date/Time: 01/21/23 10:25 Procedures ED Laceration Laceration Laceration 1: Additional comments: Laceration repair: All of the procedure was done under sterile conditions. Wound cleansed with betadine and anesthetized with local injection of approximately 2mL of lidocaine 1% with/without epinephrine. The wound was irrigated copiously with sterile normal saline. The wound was explored to depth and found to be free of foreign material. The laceration wound edges were well-approximated and did not require revision. Wound closed with 2 sterile 4-0 ethilon sutures in simple interrupted fashion. Patient tolerated the procedure well. The patient was neurovascularly intact post-repair. Topical bacitracin applied to the laceration and it was dressed with a dry sterile dressing. The patient will need to follow-up in the next 7-10 days for removal.
[2023-01-21] MEDS: LIDOCAINE HCL 1% 100 MG/10 ML MDV INJ (09:34)
== END 2023-01-21 10:25 | disposition home or self-care (01) ==
PROVIDERS: Emergency Provider Emergency Medicine; PCP Internal Medicine
DX: S01.111A Laceration without foreign body of right eyelid and periocular area, initial encounter (principal); S09.8XXA Other specified injuries of head, initial encounter; Z79.02 Long term (current) use of antithrombotics/antiplatelets; Z79.899 Other long term (current) drug therapy; W19.XXXA Unspecified fall, initial encounter; C61 Malignant neoplasm of prostate; Z90.49 Acquired absence of other specified parts of digestive tract; Z98.1 Arthrodesis status; Z90.89 Acquired absence of other organs
CPT/HCPCS: 12011; 70450; 72125; 93005; 99284

== ENCOUNTER 2023-02-05 06:44 | Outpatient (OUT) | payer MEDICARE, OTHER, SELFPAY ==
--- NOTE | 2023-02-05 | PCN_ITS ---
CARDIAC STRESS TEST Requesting Physician:? Dr. Geronimo Procedure Date:? 02/05/2023 PERFORMING PHYSICIAN:? Jak Carlton M.D. INDICATION:? Chest pain. STRESS TEST PROTOCOL:? Lexiscan myocardial perfusion imaging. Resting heart rate:? 70 beats per minute. Max heart rate:? 93 beats per minute. Resting blood pressure:? 164/88 Maximum blood pressure:? 164/88 CONCLUSIONS:? 1.? Resting EKG abnormal with normal sinus rhythm. 2.? Arrhythmia.? Cannot rule out an anterior infarct, age indeterminate. 3.? No definite EKG changes meeting the criteria for ischemia post Lexiscan infusion. 4.? Please refer to separately performed, interpreted and reported nuclear myocardial perfusion imaging. [facility]
--- NOTE | 2023-02-05 06:15 | NM_ITS ---
Patient Name: JAE LENZ MR#: [id number] : 1935 Exam Date: 02/05/2023 Ordering Doctor: KEVIN FORRESTER RADIOLOGY REPORT PROCEDURE: NM BERNARDINO PERF SPECT REST STR COMPARISON: None. INDICATIONS: CHEST PAIN, FATIGUE TECHNIQUE: Exam Description: Rest/Stress one day protocol gated SPECT Rest Imagin.1 mCi Tc-99m Cardiolite IV on 02/05/2023 Stress Imaging 30.6 mCi Tc-99m Cardiolite IV on 02/05/2023 Exercise Protocol: 0.4 mg Lexiscan given IV Heart Rate (bpm): Rest: 70 Max: 93 PMHR: 68 Blood Pressure: Rest: 164/88 Max: 164/88 Symptoms: Rest and peak stress ECG findings were pending and the exercise portion of the study was pending per attending physician Dr. DELEON . For more details please see separate cardiac stress test report. FINDINGS: QUALITY OF STUDY: Excellent. PERFUSION DEFECT: None. LOCATION: N/A SIZE: N/A. SEVERITY: N/A. TYPE: N/A. WALL MOTION: Normal. LV SIZE: Normal. 68 mL. TID / TCD: None; 0.8 LVEF: Normal. Calculated EF 60%. SUMMARY: Myocardial perfusion imaging study is NORMAL. CONCLUSION: 1. Normal nuclear medicine myocardial perfusion scan. Dictated by: Johnnie Blas M.D. on 02/06/2023 at 15:18 Approved by: Johnnie Blas M.D. on 02/06/2023 at 15:19
[2023-02-05] MEDS: REGADENOSON 0.4 MG/5 ML SYRINGE IV (08:24)
== END 2023-02-05 06:45 | disposition home or self-care (01) ==
LOC: NM 06:45
PROVIDERS: PCP Internal Medicine; Visit Provider Internal Medicine Cardiovascular Disease
DX: R07.9 Chest pain, unspecified (principal)
CPT/HCPCS: 78452; 93017; A9500; J2785

== ENCOUNTER 2023-04-06 21:29 | Emergency (ER) | payer MEDICARE, OTHER, SELFPAY ==
[2023-04-06 21:33] VITALS: BP 160/75; PULSE 71; RESP 16; TEMP 36.5; O2SAT 97; BMI 27.3
--- OUTSIDE RECORDS SUMMARY | 2023-04-06 21:40 | XMS_ITS | CCD ---
Author Name Unknown Address [address] [place] [address] Organization [facility] Care Team Providers Care Inspector Circuitry Negative Name Role Phone CAITLIN, DR JOVEL Primary Care Unavailable DONELL, DR LUIS Myers Consulting Unavailable CHARITY ., DR WILCOX Attending Unavailable HAY ., DR WILCOX Admitting Unavailable HAY ., DR WILCOX Consulting Unavailable RICE, DR ANGELA Diamond Admitting Unavailable RICE, DR ANGELA Diamond Consulting Unavailable JUDY, DR ANGELA Diamond Attending Unavailable CAITLIN, DR JOVEL Primary Care Unavailable JUDY, DR ANGELA Diamond Admitting Unavailable JUDY, DR ANGELA Diamond Consulting Unavailable JUDY, DR ANGELA Diamond Attending Unavailable CAITLIN, DR JOVEL Primary Care Unavailable MED TUCKER Primary Care Physician David ANDERSON Attending Unavailable Angela FAUSTIN Attending Unavailable JAK CARLTON Attending Unavailable JAK CARLTON Attending Unavailable MED TUCKER Attending Unavailable Allergies Allergy Classification Reported Allergen(s) Allergy Type Date of Onset Reaction(s) Facility (1 source) Meperidine Drug Allergy 7 [facility] Rep[facility] (1 source) Penicillins Drug allergy (disorder) 7 [facility] (1 source) No Known Medication Allergies; Translations: [No Known Medication Allergies] Propensity to adverse reactions (disorder) [facility] Repository Medications Current Medications Medication Drug Class(es) Dates Sig (Normalized) Sig (Original) 8 hr acetaminophen 650 mg extended release oral tablet (1 source) Start: 04-23-2021 take 1 mg by mouth every eight hours Tylenol 8 Hour Caplet 650 mg oral tablet, extended release mg tab(s), Oral, q8hr, Refills(s) 0 Start Date: 04/23/21 Status: Ordered atorvastatin 80 mg oral tablet (1 source) HMG-CoA Reductase Inhibitor Start: 11-09-2018 take 1 tablet by mouth once daily atorvastatin 80 mg Tab 80 mg = 1 tab(s), Oral, Daily Start Date: 11/09/18 Status: Ordered calcium citrate 950 mg oral tablet (1 source) Start: 04-23-2021 take 1 mg by mouth twice daily calcium (as calcium citrate) 200 mg oral tablet mg tab(s), Oral, BID, Refills(s) 0 Start Date: 04/23/21 Status: Ordered carvedilol 3.125 mg oral tablet (2 sources) alpha-Adrenergic Erlin, beta-Adrenergic Erlin Start: 04-23-2021 take 1 mg by mouth twice daily Coreg 3.125 mg Tab mg tab(s), Oral, BID, Refills(s) 0 Start Date: 04/23/21 Status: Ordered Start: 11-09-2018 take 1 tablet by ke th once daily carvedilol 3.125 mg Tab 3.125 mg = 1 tab(s), Oral, Daily Start Date: 11/09/18 Status: Ordered clopidogrel 75 mg oral tablet (1 source) P2Y12 Platelet Inhibitor Start: 04-23-2021 take 1 mg by mouth once daily Plavix 75 mg Tab mg tab(s), Oral, Daily, Refills(s) 0 Start Date: 04/23/21 Status: Ordered Echinacea Preparation (1 source) Start: 04-23-2021 echinacea Refills(s) 0 Start Date: 04/23/21 Status: Ordered esomeprazole 20 mg delayed release oral capsule (1 source) Proton Pump Inhibitor Start: 04-23-2021 take 1 mg by mouth once daily esomeprazole 20 mg Cap-DR mg cap(s), Oral, Daily, Refills(s) 0 Start Date: 04/23/21 Status: Ordered Fish Oils (1 source) Start: 04-23-2021 take 1 mg by mouth once daily Fish Oil 1000 mg oral capsule mg cap(s), Oral, Daily, Refills(s) 0 Start Date: 04/23/21 Status: Ordered FLUoxetine 20 mg oral capsule (1 source) Serotonin Reuptake Inhibitor Start: 11-09-2018 take 1 capsule by mouth once daily FLUoxetine 20 mg Cap 20 mg = 1 cap(s), Oral, Daily Start Date: 11/09/18 Status: Ordered Ginkgo biloba extract (1 source) Start: 10-29-2021 Ginkgo Biloba Start Date: 10/29/21 Status: Ordered 1.5 ml leuprolide acetate 30 mg/ml prefilled syringe (1 source) Gonadotropin Releasing Hormone Receptor Agonist Start: 10-22-2018 Lupron Depot 45 mg/6 months intramuscular injection, extended release IntraMuscular, q6mo Start Date: 10/22/18 Status: Ordered lisinopril 5 mg oral tablet (1 source) Angiotensin Converting Enzyme Inhibitor Start: 11-09-2018 take 1 tablet by mouth once daily lisinopril 5 mg Tab 5 mg = 1 tab(s), Oral, Daily Start Date: 11/09/18 Status: Ordered Multi Vitamin+ (1 source) Start: 04-23-2021 Multi Vitamin+ Refill(s) 0 Start Date: 04/23/21 Status: Ordered nitroglycerin 0.4 mg/actuat mucosal spray (1 source) Nitrate Vasodilator Start: 04-23-2021 nitroglycerin 0.4 mg SubL [place] mg spray(s), SubLingual, q5min, Refills(s) 0 Start Date: 04/23/21 Status: Ordered omeprazole 20 mg oral tablet (1 source) Proton Pump Inhibitor Start: 11-09-2018 take 1 capsule by mouth once daily Omeprazole 20 mg Cap - DR 20 mg, Oral, Daily Start Date: 11/09/18 Status: Ordered Vitamin D3 (1 source) Start: 04-23-2021 Vitamin D3 Refills(s) 0 Start Date: 04/23/21 Status: Ordered Problems Active Problems Problem Classification Problem Date Documented Date Episodic/Chronic Cancer of prostate (2 sources) Malignant neoplasm of prostate; Translations: [Malignant tumor of prostate] Onset: 3 Chronic Cancer of prostate (4 sources) Personal history of malignant neoplasm of prostate; Translations: [PERSONAL HX MALIG NEOPLASM PROSTATE] Onset: 3 Episodic Disorders of lipid metabolism (1 source) Pure hypercholesterolemia, unspecified; Translations: [PURE HYPERCHOLESTEROLEMIA UNSPEC] Onset: 2 Chronic Esophageal disorders (1 source) Gastro-esophageal reflux disease without esophagitis; Translations: [GERD WITHOUT ESOPHAGITIS] Onset: 2 Chronic Essential hypertension (1 source) Essential (primary) hypertension; Translations: [ESSENTIAL PRIMARY HYPERTENSION] Onset: 2 Chronic Genitourinary symptoms and ill-defined conditions (1 source) Nocturia 04-23-2021 Episodic Hyperplasia of prostate (6 sources) Benign prostatic hyperplasia with lower urinary tract symptoms; Translations: [Benign prostatic hypertrophy with outflow obstruction] Onset: 2 Chronic Mood disorders (1 source) Depressive disorder 10-22-2018 Chronic Other and ill-defined heart disease (1 source) Heart disease 10-22-2018 Chronic Transient cerebral ischemia (1 source) Transient cerebral ischemic attack, unspecified; Translations: [TRANS CERBRAL ISCHEMIC ATTACK UNS] Onset: 2 Chronic Unclassified (1 source) Drug therapy finding 11-09-2018 Past or Other Problems Problem Classification Problem Date Documented Da te Episodic/Chronic Other aftercare (1 source) Other shelter (current) drug therapy; Translations: [OTH SEA FOAM KISS MAKER CURRENT DRUG THERAPY] Onset: 12-03-2021 Episodic Other aftercare (1 source) [facility] (current) use of aspirin; Translations: [SEA FOAM KISS MAKER CURRENT USE OF ASPIRIN] Onset: 12-03-2021 Episodic Residual codes; unclassified (3 sources) Disorientation, unspecified; Translations: [DISORIENTATION UNSPECIFIED] Onset: 11-29-2021 Episodic Unclassified (1 source) Asymptomatic microscopic hematuria 04-23-2021 Results Test Name Value Interpretation Reference Range Facility Office Visiton 02-10-2023 Follow-up visit [id number] Jae Lenz 1935 [facility] Problem Relation Age of Onset Heart attack Other Family Status - Relation Status Age at Other Level of Service:[address] [place] OFFICE/OUTPATIENT ESTABLISHED LOW MDM 20-29 MIN Normal [facility] Physician Orderon 02-03-2023 Physician Order [id number] #[id number] Normal [facility] Office Visiton 12-31-2022 Follow-up visit [id number] Jae Lenz 1935 M Date Provider [facility] Family History Problem Relation Age of Onset Heart attack Other Family Status - Relation Status Age at Other Level of Service:91209 CA OFFICE/OUTPATIENT NEW MODERATE MDM 45-59 MINUTES Normal [facility] Screenson 07-30-2022 Screens [id number]:127 Normal [facility] Patient Educationon 07-30-19 23 Patient Education Oncology Cancer Screening for Men A cancer screening is a test or exam that checks for cancer. Your health care provider will recommend specific cancer screenings based on your age, medical history (including risk factors), and family history of cancer. Work with your health care provider to create a cancer screening schedule that protects your health. Who should have screening? All men should be considered for screening of certain cancers, including colorectal cancer, prostate cancer, lung cancer, and skin cancer. Your health care provider may recommend screenings for other types of cancer if: ? You had cancer before. ? You have a family member with cancer. ? You have abnormal genes that could increase the risk of cancer. ? You have risk factors for certain cancers, such as current or past use of tobacco products, or being overweight. When you should be screened for cancer depends on: ? Your age. ? Your medical history and your family's medical history. ? Certain lifestyle factors, such as smoking or other use of tobacco products. ? Environmental exposure, such as to asbestos. How is screening done? Colorectal cancer All adults should have screenings starting at age 45 and continuing until age 75. Your health care provider may recommend screening before age 45. You will have tests every 1?10 years, depending on your results and the type of screening test. People at increased risk should start screening at an earlier age. Talk with your health care provider about which screening test is right for you and how often you should be screened. Colorectal cancer screening looks for cancer or for growths called polyps that often form before cancer starts. Tests to look for cancer or polyps include: ? Colonoscopy or flexible sigmoidoscopy. For these procedures, a flexible tube with a small camera is inserted into the rectum. ? CT colonography. This test uses X-rays and a contrast dye to check the colon for polyps. If a polyp is found, you may need to have a colonoscopy so the polyp can be located and removed. Tests to look for cancer in the stool (feces) include: ? Guaiac-based fecal occult blood test (FOBT). This test can find blood in stool. It can be done at home with a kit. ? Fecal immunochemical test (FIT). This test can find blood in stool. For this test, you will need to collect stool samples at home. ? Stool DNA test. This test looks for blood in stool and any changes in DNA that can lead to colon cancer. For this test, you will need to collect a stool sample at home and send it to a lab. Prostate cancer Prostate cancer screening for men with average risk may start at age 50. Men with risk factors may need to be screened earlier, at ages 40?45. Talk with your health care provider about whether screening is right for you and, if so, how often you should be screened. Prostate cancer screening is done with blood tests and a digital rectal exam. During this exam, a health care provider uses a gloved finger to check prostate size. You may need to be screened for prostate cancer if: ? You have risk factors for prostate cancer, such as being or having a close family member with prostate cancer. ? You have had gene changes or a genetic condition that was passed on to you from a parent (inherited). These gene changes or genetic conditions include BRCA1 or BRCA2 gene mutations or Aggarwal syndrome. ? You have symptoms of prostate cancer, such as problems urinating or problems getting or keeping an erection (erectile dysfunction). When you have been screened for prostate cancer, future screening may be recommended based on the results of your blood tests. Lung cancer Lung cancer screening is done with a CT scan that looks for abnormal changes in the lungs. Discuss lung cancer screening with your health care provider if you are 50?80 years old and if any of the following apply to you: ? You currently smoke. ? You used to smoke heavily. ? You have a smoking history of 1 pack of cigarettes a day for 20 years or 2 packs a day for 10 years. ? You have quit smoking within the past 15 years. You may need to be screened every year if you smoke heavily or if you used to smoke. Skin cancer Skin cancer screening is done by checking the skin for unusual moles or spots and any changes in existing moles. Your health care provider should check your skin for signs of skin cancer at every physical exam. You should check your skin every month and tell your health care provider right away if anything looks unusual. Men with a cffgip-izof-qneylh risk for skin cancer may want to see a info specialist (underwriting technician) for an annual body check. What are the benefits of screening? Cancer screening is done to look for cancer in the very early stages, before it spreads and becomes harder to treat and before you would start to notice symptoms. Finding cancer early improves the chances of successful treatment. It ma (more content not included)... Normal [facility] Urology Office/Clinic Noteon 07-29-2022 Urology Office/Clinic Note Chief Complaint pt here for a 8 month f/u for PSA HPI Staff Pt is a 87 yr old Male here today for a 8 month f/u to a PSA. Pts previous PSA 0.06 done 10/25/21, Pts current PSA 0.13 done 07/16/22. Pts previous DX: BPH with urinary obstruction, prostate cancer. Pt currently taking Lupron Depot 45mg Q6mo. S/P TRUS 05/20/14. IPSS 10. Dysuria: denies Incomplete bladder emptying: denies Hematuria: denies Frequency: yes Urgency: denies Nocturia: 1-2x Stream: moderate, steady stream Leaking: only if he try's to hold it to long Post void dripping: denies Wearing pads/ Depends: denies Urge incontinence: denies Stress incontinence: denies Incontinence without Sensory Awareness: denies Abdominal pain: denies Flank pain: denies Sexual complaints: _ History of Present Illness Tests reviewed: reviewed UA, PSA. I have reviewed the previous health record information and history for this patient from Dr. Faustin. I have reviewed and verified the staff HPI to be accurate for this encounter. There have been no associated fever, chills, flank pain, or blood in the urine. Denies any urinary infections since last encounter. Review of Systems PHQ Score Initial Depression Screen Score: 0 ROS - Provider Constitutional: denies weight loss, denies hot flashes. Eyes: denies eye problems. Gastrointestinal: denies nausea, denies vomiting. Cardiovascular: denies chest pain or angina. Integumentary: no dryness Musculoskeletal: denies musculoskeletal symptoms. ENMT: denies otolaryngeal symptoms. Respiratory: no shortness of breath. Heme/Lymph: denies easy bleeding tendency, denies easy bruising tendency. Psychiatric: no confusion, no anxiety. Genitourinary: See HPI. Physical Exam Vitals & Measurements HR: 82(Peripheral) BP: 139/83 HT: 70 in HT: 177 cm WT: 77 kg WT: 169.4 lb BMI: 24.58 General Appearance: alert, no distress, well nourished, well developed male. Genitourinary: normal scrotum, normal testes, normal urethra, normal epididymis, normal vas deferens/spermatic cord. Flank Pain: none. Bladder: nonpalpable. Assessment/Plan Pt here with his partner today. Pt has been using a certified personal chef to keep his strength. 1. Prostate cancer (C61: Malignant neoplasm of prostate) PSA: 05/19/20 - 0.05 04/11/21 - 0.10 10/25/21 - 0.06 07/16/22 - 0.13 Brachytherapy 2006. TRUS/bx 05/20/14. EBRT 2014. Last Lupron 10/29/21. PSA remains stable. Will continue to monitor. Follow up 6 mos with PSA or sooner if needed. Pt understands and agrees with plan. 2. BPH with urinary obstruction (N40.1: Benign prostatic hyperplasia with lower urinary tract symptoms) UA today negative for blood and infection. Not taking any prostate meds. IPSS 10. Patient does not receive any more Lupron shots and I now been tracking his PSA told him it went to 0.13. He has very few symptoms clean urine told in 6 months we will just do a simple PSA we will track it for couple years if it stays where I believe and will stay then we will just let this patient along. I said the simplest thing is to call the patient with his PSA result in 6 months if it still in the point ranges I would do 1 more actually than let it be next year Follow-up With When Contact Information JUDY QUINTANA, Angela Diamond, URL [address] [place] [address]- Additional Instructions: 6 mos PSA Patient Education Cancer Screening for Men IYessy, personally scribed for Dr. Faustin on 07/29/2022 15:30:09. . Documentation recorded by the scribe, Yessy Hawkins, accurately reflects the services(s) I performed and decisions made by me. Authenticated by Dr. Faustin on 07/29/2022 16:09:20. Problem List/Past Medical History Ongoing Anticoagulated BPH with urinary obstruction Prostate cancer Historical Asymptomatic microscopic hematuria Depression Heart disease Nocturia Procedure/Surgical History Transrectal biopsy of prostate using ultrasound (US) guidance (05/20/2014), External beam radiotherapy (2014), Brachytherapy (12/2006), Transrectal biopsy of prostate using ultrasound (US) guidance (12/10/2006). Medications atorvastatin 80 mg Tab, 80 mg= 1 tab(s), Oral, Daily calcium (as calcium citrate) 200 mg oral tablet, Oral, BID carvedilol 3.125 mg Tab, 3.125 mg= 1 tab(s), Oral, Daily Coreg 3.125 mg Tab, Oral, BID echinacea esomeprazole 20 mg Cap-DR, Oral, Daily Fish Oil 1000 mg oral capsule, Oral, Daily FLUoxetine 20 mg Cap, 20 mg= 1 cap(s), Oral, Daily Ginkgo Biloba lisinopril 5 mg Tab, 5 mg= 1 tab(s), Oral, Daily Lupron Depot 45 mg/6 months intramuscular injection, extended release, IntraMuscular, q6mo Multi Vitamin+ nitroglycerin 0.4 mg SubL [place], SubLingual, q5min Omeprazole 20 mg Cap - DR, 20 mg, Oral, Daily Plavix 75 mg Tab, Oral, Daily Tylenol 8 Hour Caplet 650 mg oral tablet, extended release, Oral, q8hr Vitamin D3 Allergies No Known Medication All (more content not included)... Normal [facility] Comment on above: Result Comment: Elec tronically Signed By: JUDY QUINTANA, Angela Diamond\.br\Date and Time Signed: 07/29/22 16:09 EDT\.br\Electronically Co-Signed By: Yessy Hawkins\.br\Date and Time Co-Signed: 07/29/22 15:30 EDT Lab Reportson 07-17-2022 Lab Reports [id number] #[id number]:127 Normal [facility] Patient Correspondenceon Patient Correspondence [id number] #[id number]:127 Normal [facility] CBC AUTO DIFFon 11-29-2021 BASO # 0.0 103/ul Normal 0.0-0.1 [facility] Comment on above: Performed By: #### C BC #### [facility] [address] [place] [address] Dr. Junior Whitlock Basophils/100 WBC (Bld) 0.5 % Normal 0.2-2.0 [facility] Comment on above: Performed By: #### C BC #### [facility] [address] [place] [address] Dr. Junior Whitlock EO # 0.1 103/ul Normal 0.0-0.7 [facility] Comment on above: Performed By: #### C BC #### [facility] [address] [place] [address] Dr. Junior Whitlock Eosinophils/100 WBC (Bld) 1.6 % Normal 0.9-7.0 [facility] Comment on above: Performed By: #### C BC #### [facility] [address] [place] [address] Dr. Junior Whitlock Erythrocyte distribution width (RBC) [Ratio] 13.6 % Normal 11.0-15.0 [facility] Comment on above: Performed By: #### C BC #### [facility] [address] [place] [address] Dr. Junior Whitlock Hematocrit (Bld) [Volume fraction] 36.9 % Critically low 42.0-54.0 [facility] Comment on above: Performed By: #### C BC #### [facility] [address] [place] [address] Dr. Junior Whitlock Hemoglobin (Bld) [Mass/Vol] 12.9 g/dL Critically low 14.0-18.0 [facility] Comment on above: Performed By: #### C BC #### [facility] [address] [place] [address] Dr. Junior Whitlock IG # 0.03 10e3/ul Normal 0.00-0.03 [facility] Comment on above: Performed By: #### C BC #### [facility] [address] [place] [address] Dr. Junior Whitlock IG % 0.5 % Normal 0.0-0.5 [facility] Comment on above: Performed By: #### C BC #### [facility] [address] [place] [address] Dr. Junior Whitlock LYMPH # 1.4 103/ul Normal 1.2-3.8 [facility] Comment on above: Performed By: #### C BC #### [facility] [address] [place] [address] Dr. Junior Whitlock Lymphocytes/100 WBC (Bld) 24.0 % Normal 20.5-60.0 [facility] Comment on above: Performed By: #### C BC #### [facility] [address] [place] [address] Dr. Junior Whitlock MANUAL DIFF REQ NO Normal [facility] Comment on above: Performed By: #### C BC #### [facility] [address] [place] [address] Dr. Junior Whitlock MCH (RBC) [Entitic mass] 31.3 pg Normal 25.9-34.0 [facility] Comment on above: Performed By: #### C BC #### [facility] [address] [place] [address] Dr. Junior Whitlock MCHC (RBC) [Mass/Vol] 35.0 g/dL Normal 29.9-35.2 [facility] Comment on above: Performed By: #### C BC #### [facility] [address] [place] [address] Dr. Junior Whitlock MCV (RBC) [Entitic vol] 89.6 fL Normal 80.0-94.0 [facility] Comment on above: Performed By: #### C BC #### [facility] [address] [place] [address] Dr. Junior Whitlock MONO # 0.5 103/ul Normal 0.3-0.8 [facility] Comment on above: Performed By: #### C BC #### [facility] [address] [place] [address] Dr. Junior Whitlock Monocytes/100 WBC (Bld) 8.5 % Normal 1.7-12.0 [facility] Comment on above: Performed By: #### C BC #### [facility] [address] [address] [address] Junior Whitlock NEUT # 3.6 103/ul Normal 1.4-6.5 [facility] Comment on above: Performed By: #### C BC #### [facility] [address] [address] [address] Junior Whitlock Neutrophils/100 WBC (Bld) 64.9 % Normal 43.0-75.0 [facility] Comment on above: Performed By: #### C BC #### [facility] [address] [address] [address] Junior Whitlock Platelet mean volume (Bld) [Entitic vol] 9.0 fL Critically low 9.5-13.5 [facility] Comment on above: Performed By: #### C BC #### [facility] [address] [place] [address] Dr. Junior Whitlock PLT 198 103/ul Normal 150-450 [facility] Comment on above: Performed By: #### C BC #### [facility] [address] [place] [address] Dr. Junior Whitlock RBC 4.12 106/ul Critically low 4.70-6.10 [facility] Comment on above: Performed By: #### C BC #### [facility] [address] [place] [address] Dr. Junior Whitlock WBC 5.6 103/ul Normal 4.0-11.0 [facility] Comment on above: Performed By: #### C BC #### [facility] [address] [place] [address] STROKE HEAD WOon 11-30-19 CT STROKE HEAD WO EXAMINATION: CT STROKE HEAD WO HISTORY: Acute confusion COMPARISON: No relevant comparison available. TECHNIQUE: Axial CT images were obtained without IV contrast. Dose reduction techniques were achieved by using automated exposure control and/or adjustment of mA and/or kV according to patient size and/or use of iterative reconstruction technique. FINDINGS: BRAIN: No edema, hemorrhage, mass, acute infarction, or inappropriate atrophy. CSF SPACES: No hydrocephalus, subarachnoid hemorrhage, or mass. Appropriate for age. SKULL: No fracture, mass, or other significant visible lesion. SINUSES: No significant mucosal thickening or fluid on the limited views. ORBITS: No appreciable abnormality on the limited views. OTHER: Negative IMPRESSION: 1. No acute cranial hemorrhage or appreciable acute abnormality. 2. Age consistent atrophy and chronic small vessel ischemic changes. Findings discussed with Neris in the emergency department to be relayed to Dr. Zazueta. Electronically authenticated by: LUIS MARLEY Date: 2021-11-29 16:30 Normal [facility] ER URINE PROFILEon 2 Bilirubin Ql (U) Negative Normal NEGATIVE [facility] Comment on above: Performed By: #### E RUR #### [facility] [address] [place] [address] Dr. Junior Whitlock Clarity (U) CLEAR Normal CLEAR [facility] Comment on above: Performed By: #### E RUR #### [facility] [address] [place] [address] Dr. Junior Whitlock Color (U) YELLOW Normal YELLOW [facility] Comment on above: Performed By: #### E RUR #### [facility] [address] [place] [address] Dr. Junior Whitlock ERURANJANA A micrscopic examination will be performed if indicated. Normal [facility] Comment on above: Performed By: #### E RUR #### [facility] [address] [place] [address] Dr. Junior Whitlock Glucose Ql (U) Negative Normal NEGATIVE [facility] Comment on above: Performed By: #### E RUR #### [facility] [address] [place] [address] Dr. Junior Whitlock Hemoglobin Ql (U) Negative Normal NEGATIVE [facility] Comment on above: Performed By: #### E RUR #### [facility] [address] [place] [address] Dr. Junior Whitlock Ketones Ql (U) Negative Normal NEGATIVE [facility] Comment on above: Performed By: #### E RUR #### [facility] [address] [place] [address] Dr. Junior Whitlock LEUKOCYTES Negative Normal NEGATIVE [facility] Comment on above: Performed By: #### E RUR #### [facility] [address] [place] [address] Dr. Junior Whitlock Nitrite Ql (U) Negative Normal NEGATIVE [facility] Comment on above: Performed By: #### E RUR #### [facility] [address] [place] [address] Dr. Junior Whitlock pH (U) 6.0 [pH] Normal 5-9 [facility] Comment on above: Performed By: #### E RUR #### [facility] [address] [place] [address] Dr. Junior Whitlock SPEC GRAVITY 1.020 Normal 1.005-<=1.025 [facility] Comment on above: Performed By: #### E RUR #### [facility] [address] [place] [address] Dr. Junior Whitlock UA PROTEIN Negative Normal NEGATIVE/ TRACE [facility] Comment on above: Performed By: #### E RUR #### [facility] [address] [place] [address] Dr. Junior Whitlock UR MICRO IND NOT INDICATED Normal [facility] Comment on above: Performed By: #### E RUR #### [facility] [address] [place] [address] Dr. Junior Whitlock Urobilinogen Qn (U) 0.2 {Forrest'U}/dL Normal 0.2 - 1. 0 [facility] Comment on above: Performed By: #### E RUR #### [facility] [address] [place] [address] Dr. Junior Whitlock PROF CHEM 8 (BAS METB)on Anion gap [Moles/Vol] 14.7 mmol/L Normal [facility] Comment on above: Performed By: #### B MP #### [facility] [address] [place] [address] Dr. Junior Whitlock Calcium [Mass/Vol] 8.7 mg/dL Normal 8.5-10.1 [facility] Comment on above: Performed By: #### B MP #### [facility] [address] [address] [address] Junior Whitlock Chloride [Moles/Vol] 103 mmol/L Normal 98-107 [facility] Comment on above: Performed By: #### B MP #### [facility] [address] [address] [address] Junior Whitlock CO2 [Moles/Vol] 25.4 mmol/L Normal 21.0-32.0 [facility] Comment on above: Performed By: #### B MP #### [facility] [address] [address] [address] Junior Whitlock Creatinine [Mass/Vol] 0.92 mg/dL Normal 0.70-1.30 [facility] Comment on above: Performed By: #### B MP #### [facility] [address] [place] [address] Dr. Junior Whitlock EGFR-AF ST LUCIAN >60 Normal >=60 [facility] Comment on above: Performed By: #### B MP #### [facility] [address] [address] [address] Junior Whitlock EGFR-NON AF [facility] LUCIAN >60 Normal >=60 [facility] Comment on above: Performed By: #### B MP #### [facility] [address] [place] [address] Dr. Junior Whitlock Glucose [Mass/Vol] 152 mg/dL Critically high 74-106 [facility] Comment on above: Performed By: #### B MP #### [facility] [address] [place] [address] Dr. Junior Whitlock Potassium [Moles/Vol] 4.1 mmol/L Normal 3.5-5.1 [facility] Comment on above: Performed By: #### B MP #### [facility] [address] [place] [address] Dr. Junior Whitlock Sodium [Moles/Vol] 139 mmol/L Normal 136-145 [facility] Comment on above: Performed By: #### B MP #### [facility] [address] [place] [address] Dr. Junior Whitlock Urea nitrogen [Mass/Vol] 20.0 mg/dL Critically high 7.0-18.0 [facility] Comment on above: Performed By: #### B MP #### [facility] [address] [place] [address] Dr. Junior Whitlock Urea nitrogen/Creatinine [Mass ratio] 21.7 mg/mg Normal [facility] Comment on above: Performed By: #### B MP #### [facility] [address] [place] [address] Dr. Junior Whitlock PROTIMEon 11-29-2021 INR Coag (PPP) [Relative time] 1.04 {INR} Normal [facility] Comment on above: Performed By: #### P T, PTT #### [facility] [address] [place] [address] Dr. Junior Whitlock INR GUIDELINES SEE BELOW Normal [facility] Comment on above: Result Comment: ERA RED INR: 2.0 - 3.0 CONDITIONS NOT LISTED BELOW 2.5 - 3.5 FOR PROSTHETIC HEART VALVE REPLACEMENT 2.5 - 3.5 RECURRENT THROMBOSIS Performed By: #### P T, PTT #### [facility] [address] [place] [address] Dr. Junior Whitlock PT Coag (PPP) [Time] 11.2 s Normal 9.0-11.6 [facility] Comment on above: Performed By: #### P T, PTT #### [facility] [address] [place] [address] Dr. Junior Whitlock PTTon 11-29-2021 aPTT Coag (Bld) [Time] 26.6 s Normal 22.3-36.2 [facility] Comment on above: Performed By: #### P T, PTT #### [facility] [address] [place] [address] Dr. Junior Whitlock Complete Blood Count with Au to Diffon 03-20-2021 Basophils (Bld) [#/Vol] 0.04 10*3/uL Normal 0.00-0.20 [facility] Comment on above: Performed By: #### C BCAD, CMP, LIPD #### [facility] [address] [place], [place] [id number] Basophils/100 WBC (Bld) 0.7 % Normal [facility] Comment on above: Performed By: #### C BCAD, CMP, LIPD #### [facility] [address] [place], [place] [id number] Eosinophils (Bld) [#/Vol] 0.09 10*3/uL Normal 0.02-0.50 [facility] Comment on above: Performed By: #### C BCAD, CMP, LIPD #### [facility] [address] [place], [place] [id number] Eosinophils/100 WBC (Bld) 1.6 % Normal [facility] Comment on above: Performed By: #### C BCAD, CMP, LIPD #### [facility] [address] [place], [place] [id number] Erythrocyte distribution width (RBC) [Ratio] 13.4 % Normal 11.0-15.0 [facility] Comment on above: Performed By: #### C BCAD, CMP, LIPD #### [facility] [address], [place] [id number] Hematocrit (Bld) [Volume fraction] 39.6 % Normal 38.5-50.0 [facility] Comment on above: Performed By: #### C BCAD, CMP, LIPD #### [facility] [address], [place] [id number] Hemoglobin (Bld) [Mass/Vol] 13.2 g/dL Normal 13.0-17.1 [facility] Comment on above: Performed By: #### C BCAD, CMP, LIPD #### [facility] [address] [place], [place] [id number] Lymphocytes (Bld) [#/Vol] 1.5 10*3/uL Normal 0.9-3.9 [facility] Comment on above: Performed By: #### C BCAD, CMP, LIPD #### [facility] [address] [place], [place] [id number] Lymphocytes/100 WBC (Bld) 27.3 % Normal [facility] Comment on above: Performed By: #### C BCAD, CMP, LIPD #### [facility] [address] [place], [place] [id number] MCH (RBC) [Entitic mass] 30.7 pg Normal 27.0-33.0 [facility] Comment on above: Performed By: #### C BCAD, CMP, LIPD #### [facility] [address] [place], [place] [id number] MCHC (RBC) [Mass/Vol] 33.3 g/dL Normal 32.0-36.0 [facility] Comment on above: Performed By: #### C BCAD, CMP, LIPD #### [facility] [address] [place], [place] [id number] MCV (RBC) [Entitic vol] 92 fL Normal 80-100 [facility] Comment on above: Performed By: #### C BCAD, CMP, LIPD #### [facility] [address] [place], [place] [id number] Monocytes (Bld) [#/Vol] 0.5 10*3/uL Normal 0.2-0.9 [facility] Comment on above: Performed By: #### C BCAD, CMP, LIPD #### [facility] [address] [place], [place] [id number] Monocytes/100 WBC (Bld) 8.2 % Normal [facility] Comment on above: Performed By: #### C BCAD, CMP, LIPD #### [facility] [address] [place], [place] [id number] Neutrophils (Bld) [#/Vol] 3.5 10*3/uL Normal 1.5-7.8 [facility] Comment on above: Performed By: #### C BCAD, CMP, LIPD #### [facility] [address] [place], [place] [id number] Neutrophils/100 WBC (Bld) 62.0 % Normal [facility] Comment on above: Performed By: #### C BCAD, CMP, LIPD #### [facility] [address] [place], [place] [id number] Platelet mean volume (Bld) [Entitic vol] 9.40 fL Normal 7.50-12.50 [facility] Comment on above: Performed By: #### C BCAD, CMP, LIPD #### [facility] [address], [place] [id number] Platelets (Bld) [#/Vol] 205 10*3/uL Normal 140-400 [facility] Comment on above: Performed By: #### C BCAD, CMP, LIPD #### [facility] [address] [place], [place] [id number] RBC (Bld) [#/Vol] 4.30 10*6/uL Normal 4.20-5.80 [facility] Manager Comment on above: Performed By: #### C BCAD, CMP, LIPD #### [facility] [address] [place], [place] [id number] RDW-SD 44.6 fL Normal 37.0-50.0 [facility] Comment on above: Performed By: #### C BCAD, CMP, LIPD #### [facility] [address] [place], [place] [id number] WBC (Bld) [#/Vol] 5.6 10*3/uL Normal 3.8-11.0 [facility] Manager Comment on above: Performed By: #### C BCAD, CMP, LIPD #### [facility] [address] [place], [place] [id number] Comprehensive Metabolic Pane [facility] 03-20-2021 Albumin [Mass/Vol] 4.6 g/dL Normal 3.6-5.1 [facility] Comment on above: Performed By: #### C BCAD, CMP, LIPD #### [facility] [address] [place], [place] [id number] Albumin/Globulin [Mass ratio] 2.1 {ratio} Normal 1.0-2.5 [facility] Comment on above: Performed By: #### C BCAD, CMP, LIPD #### [facility] [address] [place], [place] [id number] ALP [Catalytic activity/Vol] 75 U/L Normal 40-129 [facility] Comment on above: Performed By: #### C BCAD, CMP, LIPD #### [facility] [address] [facility] [place] [id number] ALT [Catalytic activity/Vol] 17 U/L Normal 9-46 [facility] Comment on above: Result Comment: 02/28 Female reference range changed. Performed By: #### C BCAD, CMP, LIPD #### [facility] [address] [place] [id number] Anion gap [Moles/Vol] 18 mmol/L Normal 12-20 [facility] Comment on above: Result Comment: Effe ctive 04/05/2019 reference range changed. Performed By: #### C BCAD, CMP, LIPD #### [facility] [address] [place] [id number] AST [Catalytic activity/Vol] 22 U/L Normal 10-40 [facility] Comment on above: Performed By: #### C BCAD, CMP, LIPD #### [facility] [address] [id number] Bilirubin [Mass/Vol] 0.42 mg/dL Normal 0.30-1.20 [facility] Comment on above: Performed By: #### C BCAD, CMP, LIPD #### [facility] [address] [id number] BUN/CREA 19 Ratio Normal 6-22 [facility] Comment on above: Performed By: #### C BCAD, CMP, LIPD #### [facility] [address] [id number] Calcium [Mass/Vol] 9.7 mg/dL Normal 8.6-10.2 [facility] Comment on above: Performed By: #### C BCAD, CMP, LIPD #### [facility] [address] [id number] Chloride [Moles/Vol] 103 mmol/L Normal 98-107 [facility] Comment on above: Performed By: #### C BCAD, CMP, LIPD #### [facility] [address] [place], [place] [id number] CO2 [Moles/Vol] 24 mmol/L Normal 20-31 [facility] Comment on above: Performed By: #### C BCAD, CMP, LIPD #### [facility] [address] [place], [place] [id number] Creatinine [Mass/Vol] 0.9 mg/dL Normal 0.7-1.4 [facility] Specialist Comment on above: Performed By: #### C BCAD, CMP, LIPD #### [facility] [address] [place], [place] [id number] eGFRAA 93 mL/min/1.73m2 Normal >60 [facility] Comment on above: Performed By: #### C BCAD, CMP, LIPD #### [facility] [address] [place], [place] [id number] eGFRNAA 77 mL/min/1.73m2 Normal >60 [facility] Comment on above: Performed By: #### C BCAD, CMP, LIPD #### [facility] [address] [place], [place] [id number] Globulin (S) [Mass/Vol] 2.2 g/dL Normal 1.9-3.7 [facility] Comment on above: Performed By: #### C BCAD, CMP, LIPD #### [facility] [address] [place], [place] [id number] Glucose [Mass/Vol] 141 mg/dL High 65-99 [facility] Comment on above: Result Comment: For FASTING Glucose --- ADA reference ranges: Normal 65-99 mg/dl Prediabetes 100-125 Diabetes >/= 126 Performed By: #### C BCAD, CMP, LIPD #### [facility] [address] [place], [place] [id number] Potassium [Moles/Vol] 4.1 mmol/L Normal 3.5-5.5 [facility] Comment on above: Performed By: #### C BCAD, CMP, LIPD #### [facility] [address] [place], [place] [id number] Protein [Mass/Vol] 6.8 g/dL Normal 6.1-8.1 [facility] Manager Comment on above: Performed By: #### C BCAD, CMP, LIPD #### [facility] [address], [place] [id number] Sodium [Moles/Vol] 141 mmol/L Normal 135-146 [facility] Comment on above: Performed By: #### C BCAD, CMP, LIPD #### [facility] [address], [place] [id number] Urea nitrogen [Mass/Vol] 18 mg/dL Normal 7-25 [facility] Comment on above: Performed By: #### C BCAD, CMP, LIPD #### [facility] [address] [place], [place] [id number] Hemoglobin A1Con 03-20-2021 EAG 134.11 Normal [facility] Comment on above: Performed By: #### A 1C #### [facility] [address], [place] [id number] HbA1c (Bld) [Mass fraction] 6.3 % High 4.0-6.0 [facility] Comment on above: Performed By: #### A 1C #### [facility] [address] [place], [place] [id number] Lipid Panelon 03-20-2021 Cholesterol [Mass/Vol] 177 mg/dL Normal 125-200 [facility] Comment on above: Result Comment: Low risk < 200mg/dL Borderline risk 201-239 mg/dl High risk > or equal to 240 Performed By: #### C BCAD, CMP, LIPD #### [facility] [address] [place], [place] [id number] Cholesterol in HDL [Mass/Vol] 36 mg/dL Low >40 [facility] Comment on above: Result Comment: High Cardiovascular Risk HDL <40 mg/dL Low Cardiovascular Risk HDL > or equal to 60 mg/dl Performed By: #### C BCAD, CMP, LIPD #### [facility] [address] [place], [place] [id number] Cholesterol in LDL [Mass/Vol] 70 mg/dL Normal [facility] Comment on above: Result Comment: LDL ATP III CLASSIFICATION LDL less than 100 mg/dl Optimal LDL 100-129 mg/dl Near or above optimal LDL 130-159 Borderline high LDL 160-189 High LDL greater than 189 mg/dl Very High Performed By: #### C BCAD, CMP, LIPD #### [facility] [address] [place], [place] [id number] Cholesterol in VLDL [Mass/Vol] 71 mg/dL Normal [facility] Comment on above: Performed By: #### C BCAD, CMP, LIPD #### [facility] [address] [place], [place] [id number] Cholesterol.total/Cho lesterol in HDL [Mass ratio] 5 {ratio} Normal [facility] Comment on above: Performed By: #### C BCAD, CMP, LIPD #### [facility] [address] [place], [place] [id number] Triglyceride [Mass/Vol] 357 mg/dL High 30-150 [facility] Comment on above: Result Comment: TRIG ATPIII CLASSIFICATIONS TRIG less than 150 mg/dl Normal TRIG 150-199 mg/dl Borderline High TRIG 200-500 mg/dl High TRIG greather than 500 mg/dl Very High Performed By: #### C BCAD, CMP, LIPD #### [facility] [address], [place] [id number] Prostatic Specific Antigen, Totalon 03-20-2021 TPSA 0.023 ng/mL Normal <4.000 [facility] Comment on above: Result Comment: PSA Test Method: ECLIA/Bijal e 601 Performed By: #### P SA #### [facility] [address] [place], [place] [id number] CNOVon 05-23-2020 CNOV Office Visit (PUNEETTSA) JAE LENZ ([id number]) 1935 M Date Time Provider Department 05/23/20 3:30 PM Rani BHAKTA During your visit today, we recorded the following information about you: Temperature Pulse Respiration Blood pressure 97.7 degrees 75/minute 16/minute 144/84 Weight 87.9 kg G Omkar Bhakta MD 05/25/2020 3:47 PM Signed Radiation Oncology - Follow Up Note PATIENT NAME: Jae Lenz PATIENT Diagnosis: Prostate cancer [place] 8 adenocarcinoma Stage: Stage II [place] 8 adenocarcinoma 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 Radiation Course Summary Treatment Technique: AP/PA Imaging: kV stereoscopic image guidance, portal imaging Date Start: 05/25/2014 Date Complete: 06/07/2014 Treatment Area Number [employer] Number of Fractions (Elapsed Days) Dose Lumbar spine 2 6MV/18MV 10(13) 3000cGy INTERVAL HISTORY: Doing well. Denies new problems. Mild back pain that is stable. LABORATORY: PSA (ng/mL) Date Value 12/26/2014 0.06 11/25/2014 0.10 10/21/2014 0.18 09/23/2014 0.20 PSA. (no units) Date Value 05/19/2020 <0.05 2019 <0.05 05/11/2018 <0.13 04/28/2017 <0.06 04/29/16 less than 0.06 ALLERGIES: ALLERGIES Allergen Reactions - Demerol [Meperidine* GI Upset, Vomiting violently ill - Penicillins Hives, Anaphylaxis Tolerated amoxicillin oral challenge 09/08/15 - Valium [Diazepam] Mental Status Change MEDICATIONS: GLUCOSAMINE/CHONDROI TIN/C/DEACON (GLUCOSAM GOODMAN [id number] ORAL) Take by mouth. FLUoxetine HCl 20 mg tablet Take 20 mg by mouth once daily. carvedilol (COREG) 3.125 mg tablet atorvastatin (LIPITOR) 80 mg tablet Take 80 mg by mouth once daily. Multivitamin capsule Take 1 capsule by mouth once daily. lisinopril (PRINIVIL) 5 mg tablet Take 5 mg by mouth once daily. esomeprazole (NEXIUM) 40 mg capsule Take 40 mg by mouth. CALCIUM CARBONATE/VITAMIN D3 (CALCIUM 600 + D,3, ORAL) Take by mouth. OMEGA-3/DHA/EPA/FISH OIL (FISH OIL HIGH POTENCY ORAL) Take by mouth. PERTINENT REVIEW OF SYSTEMS: Hematuria: none Dysuria: none Incontinence: none Urgency: none AUA: 2 Catheter use: none Medications to aid urination: no Bowel movement frequency: 1-3/day Bowel movement quality: normal Blood per rectum: none PHYSICAL EXAM: BP 144/84 Pulse 75 Temp 36.5 ?C (97.7 ?F) Resp 16 Wt 87.9 kg (193 lb 12.8 oz) SpO2 99% BMI 27.41 kg/m? KPS equal 90 General Appearance: Well appearing, alert, in no acute distress, well-hydrated, well nourished.. Skin: Skin color, texture, turgor normal, no suspicious rashes or lesions. Musculoskeletal: Spine range of motion normal. Muscular strength intact, No joint swelling, deformity, or tenderness. Neurologic: Gait normal. Reflexes normal and symmetric. Sensation grossly intact. Rectal: Deferred ASSESSMENT/PLAN: Patient continues to do well with a low PSA. He continues with androgen deprivation therapy per urology. No role for radiation currently. Plan to see patient back in 1 year for follow-up. Signed by: MD oBzena Pemberton LPN, RN 05/23/2020 3:42 PM Signed AUA= 2 Referring Provider: Rani BHAKTA [[id number]] Allergies As of Date: 05/23/2020 Noted Allergy Reaction DEMEROL (MEPERIDINE (PF)) 09/26/2015 8 - GI Upset 11 - Vomiting Comments: violently ill PENICILLINS 07/08/2014 4 - Hives 10 - Anaphylaxis Comments: Tolerated amoxicillin oral challenge 09/08/15 VALIUM (DIAZEPAM) 09/26/2015 1 - Mental Status Change Date Reviewed: 05/23/2020 Reviewed by: Bozena Hernandez RN - Fully Assessed Reason for Visit: Prostate Cancer [590] Primary Visit Diagnosis:Malignant neoplasm of prostate (HCC) [C61] Order(s):PSA (OUTSIDE) [6891395] Order #: [id number] PSA/PROSTSPECAG DIAG [SQPSA] Order #: [id number] FUTURE Prescriptions as of 05/23/2020 Sig: GLUCOSAM GOODMAN [id number]* Take by mouth. FLUOXETINE 20 MG TABLET Take 20 mg by mouth once ernst* CARVEDILOL 3.125 MG TABLET ATORVASTATIN 80 MG TABLET Take 80 mg by mouth once ernst* MULTIVITAMIN CAPSULE Take 1 capsule by mouth once * LISINOPRIL 5 MG TABLET Take 5 mg by mouth once daily. ESOMEPRAZOLE MAGNESIUM 40 MG * Take 40 mg by mouth. CALCIUM 600 + D(3) ORAL Take by mouth. FISH OIL HIGH POTENCY ORAL Take by mouth. Problem List As Of Date 05/23/2020 Noted Resolved Malignant neoplasm of prostate (HCC) [C61] 05/23/2014 Bone metastasis (HCC) [C79.51] 05/23/2014 Right sciatic nerve pain [M54.31] 05/23/2014 History of recent fall [Z91.81] 05/23/2014 Right leg weakness [R29.898] 05/23/2014 Dehiscence of surgical wound [T81.31XA] 09/07/2015 Acute deep vein thrombosis (DVT) of distal end *09/08/2015 Wound drainage [T14.8XXA] 09/12/2015 Super (more content not included)... Normal [facility] Vital Signs Date Time Vital Sign Value Performing Clinician Sukhdeep montilla 07-29-2022 14:31-0400 Blood Pressure Location [facility] 07-29-2022 14:31-0400 Diastolic blood pressure 83 mm[Hg] [facility] 07-29-2022 14:31-0400 Heart rate 82 /min [facility] 07-29-2022 14:31-0400 Systolic blood pressure 139 mm[Hg] [facility] Encounters Encounter Date Encounter Type Care Provider Facility Start: 04-22-2023 ambulatory David Ashley ty:SAVANNAH Castro Start: 03-03-2023 End: 03-03-2023 ambulatory [facility] Not Available Start: 02-10-2023 End: 02-10-2023 ambulatory [facility] Start: 12-31-2022 End: 12-31-2022 ambulatory [facility] Start: 07-29-2022 End: 07-30-2022 ambulatory Angela FAUSTIN Facility:[facility] Start: 07-29-2022 End: 07-29-2022 Patient encounter procedure Angela Dara JUDY [facility] Start: 07-16-2022 End: 07-17-[address] ANGELA FAUSTIN Facility:[facility] Start: 11-29-2021 End: 11-29-[address] MED TUCKER Facility:[facility] Start: 10-25-2021 End: 10-26-[address] ANGELA FAUSTIN Facility:[facility] Procedures Date Procedure Procedure Detail Performing Clinician Start: 07-16-[address] MED TUCKER Comment on above: Performed By: #### P SAD #### [facility] [address] [place] [address] Dr. Junior Whitlock Start: 10-25-[address] MED TUCKER Comment on above: Performed By: #### P SAD #### [facility] [address] [place] [address] Dr. Junior Whitlock Start: 05-20-2014 Transrectal biopsy o f prostate using ultrasound guidance [employer] Start: 03-31-2014 Teleradiotherapy procedure [employer] Start: 12-29-2006 Intracavitary brachytherapy [employer] Start: 12-10-2006 Transrectal biopsy o f prostate using ultrasound guidance [employer] Immunizations Immunization Date Immunization Notes Care Provider Fa cili 02-04-2022 influenza virus vaccine, unspecified formulation [employer] [facility] 02-02-2022 SARS-CoV-2 (COVID-19 ) [id number] [employer] [facility] 07-17-2021 SARS-CoV-2 mRNA (wcenxuwfari-pulo-enuga se) vaccine [employer] [facility] 02-13-2021 influenza virus vaccine, unspecified formulation Angela [employer] [facility] 12-26-2020 SARS-CoV-2 (COVID-19 ) mRNA BNT-162b2 vax [employer] [facility] 05-17-2020 SARS-CoV-2 (COVID-19 ) mRNA BNT-162b2 vax [employer] [facility] Comment on above: Result Comment: 2022: [id number] 05-11-2020 SARS-CoV-2 (COVID-19 ) mRNA-1273 vaccine [employer] [facility] 04-26-2020 SARS-CoV-2 (COVID-19 ) mRNA BNT-162b2 vax [employer] [facility] Comment on above: Result Comment: 2022: [id number] 04-13-2020 SARS-CoV-2 (COVID-19 ) mRNA-1273 vaccine [employer] [place] [facility] 12-02-2019 influenza virus vaccine, unspecified formulation Angela [employer] [facility] 02-10-2019 zoster vaccine recombinant Angela [employer] [facility] 01-28-2019 influenza virus vaccine, unspecified formulation [employer] [facility] 12-29-2018 influenza virus vaccine, live, attenuated, for intranasal use [employer] [facility] 11-12-2018 zoster vaccine recombinant [employer] [facility] 12-25-2017 influenza virus vaccine, unspecified formulation Angela [employer] [facility] 01-24-2017 influenza virus vaccine, unspecified formulation [employer] [facility] 06-21-2015 pneumococcal conjuga te vaccine, 13 valent [employer] [facility] 05-12-2014 zoster vaccine, live [employer] [facility] 05-01-2014 influenza virus vaccine, unspecified formulation [employer] [facility] Payers Date Payer Category Payer Medicare [id number] 1957 Unknown [id number] 1935 Unknown [id number] 2.16.84 [id number] 1935 Unknown [id number] 2.16.84 [id number] 1937 Unknown [id number] 2.16.84 [id number] 1937 Unknown [id number] 2.16.8 [id number] 1937 Unknown [id number] 2.16.8 [id number] 1937 Unknown [id number] Social History Date Type Detail Facility Start: 07-29-2022 Tobacco smoking status Never s moked tobacco (finding) [facility] Tobacco smoking status Never [facility] Sex Assigned At Male [facility] Functional Status Date Assessment Result Facility 07-29-2022 Functional Status N/A [facility] Progress note 02-10-2023 Note Date & Type Note Facility 02-10-2023 Note Patient here for fol low up stress test. No chest pain or shortness of breath. Fatigued per daughter. [facility] Progress note 02-10-2023 Note Date & Type Note Facility 02-10-2023 Note Cardiology Clinic No te Chief Complaint: chest pain HPI: Jae Lenz is a 87 y.o. 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 Patient recently presented to the emergency department with complaints of weakness and a single episode of chest pain. Per report, patient was dehydrated and improved after fluid resuscitation. Patient states chest pain last for a few hours but resolved spontaneously. He denies any recurrence of chest pain. He denies any chest pain prior to that episode. For his symptoms, stress test and echocardiogram were performed. No reversible ischemia was noted on stress test. Echocardiogram demonstrated preserved EF and no significant valvular abnormalities Presents today for follow-up with his and daughter. He adamantly denies any recurrence of chest pain. Adamantly denies any shortness of breath. He does complain of generalized fatigue, which he states has been ongoing for some time. Daughter states that he sleeps all of the time. No lower extreme edema, orthopnea, paroxysmal nocturnal dyspnea. No near syncope or syncope. Cardiology ROS: 10 point ROS is performed and is negative unless otherwise specified in HPI Past Medical History He has a past medical history of BPH (benign prostatic hyperplasia), Cancer (CMS/HCC), Coronary artery disease, Hyperlipidemia, and Hypertension. Surgical History He has a past surgical history that includes Coronary stent placement; Cardiac catheterization; and Back surgery. Social History He reports that he has never smoked. He has never used smokeless tobacco. He reports that he does not currently use alcohol. No history on file for drug use. Family History Family History Problem Relation Name Age of Onset Heart attack Other Medications Current Outpatient Medications on File Prior to Visit Medication Sig Dispense Refill atorvastatin (Lipitor) 80 mg tablet Take 1 tablet by mouth in the morning. carvedilol (Coreg) 3.125 mg tablet take 1 tablet by mouth every morning and BEFORE BEDTIME clopidogrel (Plavix) 75 mg tablet Take 75 mg by mouth in the morning. donepezil (Aricept) 10 mg tablet Take 10 mg by mouth. esomeprazole (NexIUM) [address] capsule Take 20 mg by mouth. FLUoxetine (PROzac) 20 mg capsule Take 40 mg by mouth in the morning. lisinopril 5 mg tablet Take 1 tablet by mouth in the morning. No current facility-administered medications on file prior to visit. Allergies Patient has no known allergies. Physical Exam VITAL SIGNS: BP 112/74 (BP Location: Left arm, Patient Position: Sitting) Pulse 87 Ht 1.778 m (5' 10 ) Wt 83.9 kg (185 lb) SpO2 98% BMI 26.54 kg/m??? Constitutional: Well developed, Well nourished, No acute distress, Non-toxic appearance. HENT: Normocephalic, Atraumatic, Bilateral external ears have normal appearance, Nose appears normal, nares are patent. Eyes: PERRLA, EOMI, Conjunctiva normal, No discharge. Neck: Normal range of motion, No tenderness, Supple, No stridor. No cervical lymphadenopathy noted. Cardiovascular: Normal heart rate, Normal rhythm, No murmurs, No rubs, No gallops. Thorax & Lungs: Normal breath sounds, No respiratory distress, No wheezing, No chest tenderness to palpation. Abdomen: Bowel sounds normal, Soft, Nontender, No masses, No pulsatile masses. Skin: Warm, Dry, No erythema, No rash. Back: No tenderness, No CVA tenderness. Extremities: Intact distal pulses, No edema, No tenderness, No cyanosis, No clubbing. Musculoskeletal: Grossly normal strength in extremities Neurologic: Alert & oriented x 3, no gross focal neurological deficits Psychiatric: Affect normal, Judgment normal, Mood normal. Impression: -CAD with UNIT SUPERVISOR of LAD, PCI of D1. No reversible ischemia noted on stress. No angina or anginal equivalents at the present time. -HTN -HLD -Generalized fatigue Plan: -Continue atorvastatin 80 mg daily, carvedilol 3.125 mg twice daily, and atorvastatin 80 mg daily for history of CAD. -Continue current antihypertensive regimen, As blood pressures well controlled -For generalized fatigue, discussed obtaining maintenance labs including CBC, CMP, thyroid labs, LFTs, and sleep study test. Patient will discuss with PCP. -No further Cardiac testing indicated at this time -Optimize medical management -Aggressive risk factor modification -Plan of care discussed with patient. All questions were answered. Patient voices understanding and is agreeable with current plan. -Patient was educated on red flag symptoms. Strict return precautions were provided. Patient verbalizes understanding -Follow-up in cardiology clinic in 3 months, or sooner if needed Jak Carlton MD Interventional Cardiology [facility] Progress note 12-31-2022 Note Date & Type Note Facility 12-31-2022 Note Cardiology Clinic No te Chief Complaint: chest pain HPI: Jae Lenz is a 87 y.o. 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 Patient recently presented to the emergency department with complaints of weakness and a single episode of chest pain. Per report, patient was dehydrated and improved after fluid resuscitation. Patient states chest pain last for a few hours but resolved spontaneously. He denies any recurrence of chest pain. He denies any chest pain prior to that episode. He does endorse occasional dyspnea on exertion. He denies any lower extremity edema, orthopnea, or paroxysmal nocturnal dyspnea. Work-up was unrevealing in hospital. Echo was without acute abnormality. LVEF was preserved. Cardiac enzymes were negative. No acute ST changes were noted. Patient was instructed to follow-up with cardiology on an outpatient basis. Patient has not had any recurrence of symptoms since hospital visit. Cardiology ROS: 10 point ROS is performed and is negative unless otherwise specified in HPI Past Medical History He has a past medical history of BPH (benign prostatic hyperplasia), Cancer (CMS/HCC), Coronary artery disease, Hyperlipidemia, and Hypertension. Surgical History He has a past surgical history that includes Coronary stent placement; Cardiac catheterization; and Back surgery. Social History He reports that he has never smoked. He has never used smokeless tobacco. He reports that he does not currently use alcohol. No history on file for drug use. Family History Family History Problem Relation Name Age of Onset Heart attack Other Medications Current Outpatient Medications on File Prior to Visit Medication Sig Dispense Refill atorvastatin (Lipitor) 80 mg tablet Take 1 tablet by mouth in the morning. carvedilol (Coreg) 3.125 mg tablet take 1 tablet by mouth every morning and BEFORE BEDTIME clopidogrel (Plavix) 75 mg tablet Take 75 mg by mouth in the morning. esomeprazole (NexIUM) [address] capsule Take 20 mg by mouth. FLUoxetine (PROzac) 20 mg capsule Take 40 mg by mouth in the morning. lisinopril 5 mg tablet Take 1 tablet by mouth in the morning. No current facility-administered medications on file prior to visit. Allergies Patient has no known allergies. Physical Exam VITAL SIGNS: BP 113/77 (BP Location: Left arm, Patient Position: Sitting) Pulse 86 Ht 1.778 m (5' 10 ) Wt 86.6 kg (191 lb) SpO2 97% BMI 27.41 kg/m??? Constitutional: Well developed, Well nourished, No acute distress, Non-toxic appearance. HENT: Normocephalic, Atraumatic, Bilateral external ears have normal appearance, Nose appears normal, nares are patent. Eyes: PERRLA, EOMI, Conjunctiva normal, No discharge. Neck: Normal range of motion, No tenderness, Supple, No stridor. No cervical lymphadenopathy noted. Cardiovascular: Normal heart rate, Normal rhythm, No murmurs, No rubs, No gallops. Thorax & Lungs: Normal breath sounds, No respiratory distress, No wheezing, No chest tenderness to palpation. Abdomen: Bowel sounds normal, Soft, Nontender, No masses, No pulsatile masses. Skin: Warm, Dry, No erythema, No rash. Back: No tenderness, No CVA tenderness. Extremities: Intact distal pulses, No edema, No tenderness, No cyanosis, No clubbing. Musculoskeletal: Grossly normal strength in extremities Neurologic: Alert & oriented x 3, no gross focal neurological deficits Psychiatric: Affect normal, Judgment normal, Mood normal. Impression: -CAD with UNIT SUPERVISOR of LAD, PCI of D1 -Chest pain, atypical in nature -HTN -HLD Plan: -Given history of CAD and episode of chest pain, prudent to rule out ischemia. - Discussed options with patient, invasive versus noninvasive testing. Patient prefers to start with noninvasive testing at the present time. We will order echo and Lexiscan stress test to rule out ischemia. Patient understands that he may require invasive testing if stress test is positive -He is on atorvastatin 80 mg daily, carvedilol 3.125 mg twice daily, and atorvastatin 80 mg daily for history of CAD. Continue current medication regimen. -Continue current antihypertensive regimen, As blood pressures well controlled -Optimize medical management -Aggressive risk factor modification -Plan of care discussed with patient. All questions were answered. Patient voices understanding and is agreeable with current plan. -Patient was educated on red flag symptoms. Strict return precautions were provided. Patient verbalizes understanding -Follow-up in cardiology clinic in 6 weeks, or sooner if needed Thank you for allowing us to participate in the care of your patient. Please do not hesitate to contact cardiology with any questions or concerns. Jak Carlton MD Interventional Cardiology [facility] Progress note 12-31-2022 Note Date & Type Note Facility 12-31-2022 Note New patient here to re-establish care for CAD and chest pain. He was seen in [facility] ED last week for chest pain. Daughter states he gets very weak and SOB at the drop of a hat . His significant other states he doesn't drink enough water. She says after he was given IV fluids in the ED he perked right up . He denies palpitations and syncope. Review of Systems Cardiovascular: Positive for chest pain and dyspnea on exertion. Neurological: Positive for light-headedness. All other systems reviewed and are negative. [facility] Hospital Discharge instructions 07-29-2022 Note Date & Type Note Facility 07-29-2022 Hospital Discharg e instructions Patient Education 07/29/2022 15:22:27 Cancer Screening for Men Cancer Screening for Men A cancer screening is a test or exam that checks for cancer. Your health care provider will recommend specific cancer screenings based on your age, medical history (including risk factors), and family history of cancer. Work with your health care provider to create a cancer screening schedule that protects your health. Who should have screening? All men should be considered for screening of certain cancers, including colorectal cancer, prostate cancer, lung cancer, and skin cancer. Your health care provider may recommend screenings for other types of cancer if: You had cancer before. You have a family member with cancer. You have abnormal genes that could increase the risk of cancer. You have risk factors for certain cancers, such as current or past use of tobacco products, or being overweight. When you should be screened for cancer depends on: Your age. Your medical history and your family's medical history. Certain lifestyle factors, such as smoking or other use of tobacco products. Environmental exposure, such as to asbestos. How is screening done? Colorectal cancer All adults should have screenings starting at age 45 and continuing until age 75. Your health care provider may recommend screening before age 45. You will have tests every 1 10 years, depending on your results and the type of screening test. People at increased risk should start screening at an earlier age. Talk with your health care provider about which screening test is right for you and how often you should be screened. Colorectal cancer screening looks for cancer or for growths called polyps that often form before cancer starts. Tests to look for cancer or polyps include: Colonoscopy or flexible sigmoidoscopy. For these procedures, a flexible tube with a small camera is inserted into the rectum. CT colonography. This test uses X-rays and a contrast dye to check the colon for polyps. If a polyp is found, you may need to have a colonoscopy so the polyp can be located and removed. Tests to look for cancer in the stool (feces) include: Guaiac-based fecal occult blood test (FOBT). This test can find blood in stool. It can be done at home with a kit. Fecal immunochemical test (FIT). This test can find blood in stool. For this test, you will need to collect stool samples at home. Stool DNA test. This test looks for blood in stool and any changes in DNA that can lead to colon cancer. For this test, you will need to collect a stool sample at home and send it to a lab. Prostate cancer Prostate cancer screening for men with average risk may start at age 50. Men with risk factors may need to be screened earlier, at ages 40 45. Talk with your health care provider about whether screening is right for you and, if so, how often you should be screened. Prostate cancer screening is done with blood tests and a digital rectal exam. During this exam, a health care provider uses a gloved finger to check prostate size. You may need to be screened for prostate cancer if: You have risk factors for prostate cancer, such as being or having a close family member with prostate cancer. You have had gene changes or a genetic condition that was passed on to you from a parent (inherited). These gene changes or genetic conditions include BRCA1 or BRCA2 gene mutations or Aggarwal syndrome. You have symptoms of prostate cancer, such as problems urinating or problems getting or keeping an erection (erectile dysfunction). When you have been screened for prostate cancer, future screening may be recommended based on the results of your blood tests. Lung cancer Lung cancer screening is done with a CT scan that looks for abnormal changes in the lungs. Discuss lung cancer screening with your health care provider if you are 50 80 years old and if any of the following apply to you: You currently smoke. You used to smoke heavily. You have a smoking history of 1 pack of cigarettes a day for 20 years or 2 packs a day for 10 years. You have quit smoking within the past 15 years. You may need to be screened every year if you smoke heavily or if you used to smoke. Skin cancer Skin cancer screening is done by checking the skin for unusual moles or spots and any changes in existing moles. Your health care provider should check your skin for signs of skin cancer at every physical exam. You should check your skin every month and tell your health care provider right away if anything looks unusual. Men with a vhtvhs-udke-olhoph risk for skin cancer may want to see a info specialist (underwriting technician) for an annual body check. What are the benefits of screening? Cancer screening is done to look for cancer in the very early stages, before it spreads and becomes harder to treat and before you would start to notice symptoms. Finding cancer early improves the chances of successful treatment. It may save your life. Where to find more information [place] [employer]: www.cancer.org Centers for Disease Control and Prevention: www.cdc.gov National Cancer [place]: www.cancer.gov Contact a health care provider if: You have concerns about any signs or symptoms of cancer. These may include: Skin problems. You may have: ?Moles of an unusual shape or color. ?Changes in existing moles. ?A sore on your skin that does not heal. Tiredness (fatigue) that does not go away. Losing weight without trying. Blood in your urine or stool. Problems with urination. You may have: ?Changes in urination habits. ?Painful urination. Painful ejaculation. Problems with coughing or breathing. These may include: ?Coughing or trouble breathing that does not go away. ?Coughing up blood. Frequent pain or cramping in your abdomen. Summary Your health care provider will recommend specific cancer screenings based on your age, medical history, and family history of cancer. Work with your health care provider to create a cancer screening schedule that protects your health. Finding cancer early improves the chances of successful treatment. It may save your life. Contact a health care provider if you have concerns about any signs or symptoms of cancer. This information is not intended to replace advice given to you by your health care provider. Make sure you discuss any questions you have with your health care provider. Document Revised: 08/13/2021 Document Reviewed: 02/11/2020 [employer] Patient Education 2022 [employer]. Follow Up Care 10/29/2021 15:06:20 With:JUDY QUINTANA, Angela Diamond, URL Address: [address] [place], [place] [id number]- When: Unknown [facility] Progress note 05-23-2020 Note Date & Type Note Facility 05-23-2020 Note HNO ID: [id number] Author: Rani Bhakta Service: ? 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 Radiation Course Summary Treatment Technique: AP/PA Imaging: kV stereoscopic image guidance, portal imaging Date Start: 05/25/2014 Date Complete: 06/07/2014 Treatment Area Number [employer] Number of Fractions (Elapsed Days) Dose Lumbar spine 2 6MV/18MV 1013) 3000cGy INTERVAL HISTORY: Doing well. Denies new problems. Mild back pain that is stable. LABORATORY: PSA (ng/mL) Date Value 12/26/2014 0.06 11/25/2014 0.10 10/21/2014 0.18 09/23/2014 0.20 PSA. (no units) Date Value 05/19/2020 <0.05 2019 <0.05 05/11/2018 <0.13 04/28/2017 <0.06 04/29/16 less than 0.06 ALLERGIES: ALLERGIES Allergen Reactions - Demerol [Meperidine* GI Upset, Vomiting violently ill - Penicillins Hives, Anaphylaxis Tolerated amoxicillin oral challenge 09/08/15 - Valium [Diazepam] Mental Status Change MEDICATIONS: GLUCOSAMINE/CHONDROITIN/C/DEACON (GLUCOSAM GOODMAN [id number] ORAL) Take by mouth. FLUoxetine HCl 20 mg tablet Take 20 mg by mouth once daily. carvedilol (COREG) 3.125 mg tablet atorvastatin (LIPITOR) 80 mg tablet Take 80 mg by mouth once daily. Multivitamin capsule Take 1 capsule by mouth once daily. lisinopril (PRINIVIL) 5 mg tablet Take 5 mg by mouth once daily. esomeprazole (NEXIUM) 40 mg capsule Take 40 mg by mouth. CALCIUM CARBONATE/VITAMIN D3 (CALCIUM 600 + D,3, ORAL) Take by mouth. OMEGA-3/DHA/EPA/FISH OIL (FISH OIL HIGH POTENCY ORAL) Take by mouth. PERTINENT REVIEW OF SYSTEMS: Hematuria: none Dysuria: none Incontinence: none Urgency: none AUA: 2 Catheter use: none Medications to aid urination: no Bowel movement frequency: 1-3/day Bowel movement quality: normal Blood per rectum: none PHYSICAL EXAM: BP 144/84 Pulse 75 Temp 36.5 ?C (97.7 ?F) Resp 16 Wt 87.9 kg (193 lb 12.8 oz) SpO2 99% BMI 27.41 kg/m? KPS equal 90 General Appearance: Well appearing, alert, in no acute distress, well-hydrated, well nourished.. Skin: Skin color, texture, turgor normal, no suspicious rashes or lesions. Musculoskeletal: Spine range of motion normal. Muscular strength intact, No joint swelling, deformity, or tenderness. Neurologic: Gait normal. Reflexes normal and symmetric. Sensation grossly intact. Rectal: Deferred ASSESSMENT/PLAN: Patient continues to do well with a low PSA. He continues with androgen deprivation therapy per urology. No role for radiation currently. Plan to see patient back in 1 year for follow-up. Signed by: Rani Bhakta MD [facility] Evaluation + Plan note Note Date & Type Note Facility Evaluation + Plan note Future Appointments Appointment Date:02/17/2023 02:45:00 PM Scheduled Provider:Angela FAUSTIN MD Location:[facility] Appointment Type:URO Office Visit Diagnostic Tests PendingPSA Total 07/29/22 [facility] course Narrative Note Date & Type Note Facility Hospital course Narrative No data available for this section [facility] Progress note Note Date & Type Note Facility Progress note No data available for this section [facility] Summary Purpose Family History No Family History Records FoundNo Family History Records FoundNo Family History Records FoundNo Family History Records FoundNo Family History Records FoundNo Family History Records Found Advance Directives No Advanced Directives Records FoundNo Advanced Directives Records FoundNo Advanced Directives Records FoundNo Advanced Directives Records FoundNo Advanced Directives Records FoundNo Advanced Directives Records Found Additional Source Comments (unrecognized sect ion and content) No Status Records FoundNo Status Records FoundNo Status Records FoundNo Status Records FoundNo Status Records FoundNo Status Records Found INFORMATION SOURCE (unrecogn ized section and content) DATE CREATED AUTHOR 03/21/2021 [facility] dical Specialist DATE CREATED AUTHOR AUTHOR'S ORGANIZ ATION 04/26/2021 [facility] DATE CREATED AUTHOR AUTHOR'S ORGANIZ ATION 07/21/2022 [facility] DATE CREATED AUTHOR AUTHOR'S ORGANIZ ATION 02/03/2023 [facility] DATE CREATED AUTHOR AUTHOR'S ORGANIZ ATION 02/11/2023 [facility] DATE CREATED AUTHOR AUTHOR'S ORGANIZ ATION 03/05/2023 [facility] dical Specialists [facility] Patient Care team informatio n (unrecognized section and content) Personnel Name: MED TUCKER MD Address: Address: [address] [place] [address] FOR RECORDS PERTAINING TO PATIENTS WHO ARE OR HAVE BEEN ENROLLED IN A CHEMICAL DEPENDENCY/SUBSTANCEABUSE PROGRAM, SOME INFORMATION MAY BE OMITTED. This clinical summary was aggregated from multiple sources. Caution should be exercised in using it in the provision of clinical care. This summary normalizes information from multiple sources, and as a consequence, information in this document may materially change the coding, format and clinical context of patient data. In addition, data may be omitted in some cases. CLINICAL DECISIONS SHOULD BE BASED ON THE PRIMARY CLINICAL RECORDS. [facility]. provides no warranty or guarantee of the accuracy or completeness of information in this document.
--- NOTE | 2023-04-06 21:52 | ECG_ITS ---
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
--- NOTE | 2023-04-06 21:52 | XR_ITS ---
The [place] [id number] Patient Name: JAE LENZ MRN: [id number] date: 1935 Sex: M Assigned Patient Location: ER Current Patient Location: ER Accession/Order Number: [id number] Exam Date: 04/06/2023 22:28 Report Date: 04/06/2023 22:53 At the request of: CELSO STINSON Procedure: XR chest 1V EXAMINATION: XR chest 1V, , 04/06/2023 10:28 PM EST INDICATION: weak HISTORY: Ordering Provider Reason for Exam: weak Technologist Note: Additional: COMPARISON: Chest x-ray dated 12/27/2022. TECHNIQUE: Chest x-ray: One view. FINDINGS: No pneumothorax, pleural effusion or focal airspace consolidation. Heart is normal in size. Bony thorax is unremarkable. XR/XR chest 1V IMPRESSION: No acute cardiopulmonary process. Electronically authenticated by: KENZIE ALONSO Date: 04/06/2023 22:53
--- NOTE | 2023-04-06 21:52 | CT_ITS ---
The [address] [address] Patient Name: JAE LENZ MRN: [id number] date: 1935 Sex: M Assigned Patient Location: ER Current Patient Location: ER Accession/Order Number: [id number] Exam Date: 04/06/2023 22:28 Report Date: 04/06/2023 22:56 At the request of: CELSO STINSON Procedure: CT head/brain wo con INDICATION: 87 years old; Male. Head feels funny . TECHNIQUE: CT Head (ax/cor/sag reformats). Ionizing radiation dose reduced via iterative reconstruction/FBP blend and body size kV/mA adjustment. Comparison: Head CT dated 01/21/2023. FINDINGS: POSTOPERATIVE CHANGES: None. BRAIN PARENCHYMA: There is a focal area of decreased density consistent with an area of chronic infarction adjacent the frontal horn of left lateral ventricle. Superior is new as compared to the prior examination but has a chronic appearance. No intraparenchymal or extra-axial hemorrhage. No mass effect. No midline shift or herniation. Subtle patchy low-density is seen in the white matter without mass effect consistent with small vessel ischemic change. VENTRICLES/EXTRA-AXIAL SPACES: Normal for patient's age. SINUSES/MASTOIDS: The visualized sinuses are clear although these paranasal sinuses are not entirely visible in this routine CT of the head. Mastoids and middle ears are clear. MSK: No displaced or depressed calvarial fracture. OTHER: No hyperdense intraluminal thrombus is present. Vascular calcifications are seen. CT/CT head/brain wo con IMPRESSION: 1. No acute intracranial abnormality. No hemorrhage or mass effect. 2. 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 This is not present in the prior examination but has a chronic appearance. 3. Small vessel ischemic changes. 4. Vascular calcification. Electronically authenticated by: ANGELA TOMAS Date: 04/06/2023 22:56
--- NOTE | 2023-04-06 21:54 | ED_ITS ---
HPI - Dizziness General Chief Complaint: Dizziness Stated Complaint: LIGHT HEADED/FEELS FUNNY Time Seen by Provider: 04/06/23 21:35 Source: patient and family Mode of arrival: Wheelchair Limitations: no limitations History of Present Illness HPI Narrative: 87-year-old male presents for a funny feeling on his forehead. It started about an hour or two ago. He states his forehead funny. He feels a little bit light headed but doesn't have any headache or chest pain. No palpitations or shortness of breath. No vomiting diarrhea or abdominal pain. This happened about a month ago but it didn't last long and he didn't go get it checked out. Related Data Home Medications Medication Instructions Recorded Confirmed atorvastatin 80 mg tablet 80 mg PO QPM 12/27/22 04/06/23 carvedilol 3.125 mg tablet 3.125 mg PO Q12H 12/27/22 04/06/23 clopidogrel 75 mg tablet 75 mg PO DAILY 12/27/22 04/06/23 fluoxetine 20 mg capsule 20 mg PO DAILY 12/27/22 04/06/23 lisinopril 5 mg tablet 5 mg PO DAILY 12/27/22 04/06/23 omeprazole 20 mg capsule,delayed 20 mg PO DAILY 12/27/22 04/06/23 release Allergies Allergy/AdvReac Type Severity Reaction Status Date / Time No Known Drug Allergies Allergy Verified 04/06/23 21:39 Review of Systems ROS0 Narrative not obtainable, age PFSH PFSH Medical History (Updated 04/07/23 @ 00:47 by Sukh Nevarez MD) Prostate cancer ?C61 - Malignant neoplasm of prostate (ICD-10) Surgical History (Updated 01/21/23 @ 09:05 by Hudson Sagastume) History of appendectomy ?Z90.49 - Acquired absence of other specified parts of digestive tract (ICD- 10) History of tonsillectomy ?Z90.89 - Acquired absence of other organs (ICD-10) History of lumbar fusion ?Z98.1 - Arthrodesis status (ICD-10) Family History Mother Family history of CHF (congestive heart failure) Family history of myocardial infarction Social History Smoking status: Former smoker Exam Narrative Exam Narrative: Nurses note and vital signs reviewed and patient is not hypoxic. General: The patient appears no apparent distress. Patient is resting comfortably on cart. Skin: Warm, dry, no pallor noted. There is no rash noted. Head: Normocephalic, atraumatic Eye: Normal conjunctiva, no drainage Ears, Nose, Mouth, and Throat: oral mucosa is moist. Nares patent. Cardiovascular: Regular Rate and Rhythm Respiratory: Patient is in no distress, no accessory muscle use, lungs are clear to auscultation, no wheezing, rales or rhonchi Back: non-tender, no CVA tenderness bilaterally to percussion. GI: soft and nontender Musculoskeletal: The patient has no evidence of calf tenderness, no pitting edema, symmetrical pulses noted bilaterally Neurological: awake and alert. He is soft-spoken. Upper and lower extremity strength is symmetric. Psychiatric: Cooperative Constitutional Vital Signs, click to edit/add: Last Vital Signs Temp 97.7 F 04/06/23 21:33 Pulse 71 04/06/23 21:33 Resp 16 04/06/23 21:33 BP 160/75 H 04/06/23 21:33 Pulse Ox 97 04/06/23 21:33 O2 Del Method Room Air 04/06/23 21:33 Course Vital Signs Vital signs: Vital Signs Temperature 97.7 F 04/06/23 21:33 Pulse Rate 71 04/06/23 21:33 Respiratory Rate 16 04/06/23 21:33 Blood Pressure 160/75 H 04/06/23 21:33 Pulse Oximetry 97 04/06/23 21:33 Oxygen Delivery Method Room Air 04/06/23 21:33 Temperature 97.7 F 04/06/23 21:33 Pulse Rate 71 04/06/23 21:33 Respiratory Rate 16 04/06/23 21:33 Blood Pressure 160/75 H 04/06/23 21:33 Pulse Oximetry 97 04/06/23 21:33 Oxygen Delivery Method Room Air 04/06/23 21:33 MDM - Dizziness MDM Narrative Medical decision making narrative: his workup is negative and his symptoms have resolved completely. He is back to normal. Family is advised of the findings and they are comfortable taking him ho me. Follow-up with his doctor. Treatment diagnosis and follow up are discussed thoroughly. Differential Diagnosis Differential diagnosis: Likely benign paroxysmal positional vertigo, orthostatic hypotension and other (dehydration, anemia, urinary tract infection) Lab Data Attestation: I reviewed the patient's lab results. Labs: Lab Results 04/06/23 04/06/23 Range/Units 21:45 23:55 WBC 6.0 (4.0-11.0) 10^3/uL RBC 4.00 L (4.70-6.10) 10^6/uL Hgb 12.6 L (14.0-18.0) g/dL Hct 36.7 L (42.0-54.0) % MCV 91.8 (80.0-94.0) fL MCH 31.5 (25.9-34.0) pg MCHC 34.3 (29.9-35.2) g/dL RDW 13.2 (11.0-15.0) % Plt Count 212 (150-450) 10^3/uL MPV 9.1 L (9.5-13.5) fL Neut % (Auto) 62.9 (43.0-75.0) % Lymph % (Auto) 25.0 (20.5-60.0) % [place] % (Auto) 8.0 (1.7-12.0) % Eos % (Auto) 3.3 (0.9-7.0) % Baso % (Auto) 0.5 (0.2-2.0) % Neut # (Auto) 3.8 (1.4-6.5) 10^3/uL Lymph # (Auto) 1.5 (1.2-3.8) 10^3/uL [place] # (Auto) 0.5 (0.3-0.8) 10^3/uL Eos # (Auto) 0.2 (0.0-0.7) 10^3/uL Baso # (Auto) 0.0 (0.0-0.1) 10^3/uL Abs Immat Gran (auto) 0.02 (0.00-0.03) 10^3/uL Imm/Tot Granulo (auto) 0.3 (0.0-0.5) % Sodium 137 (136-145) mmol/L Potassium 3.8 (3.5-5.1) mmol/L Chloride 101 (98-107) mmol/L Carbon Dioxide 25.4 (21.0-32.0) mmol/L Anion Gap 14.4 BUN 20.0 H (7.0-18.0) mg/dL Creatinine 0.97 (0.70-1.30) mg/dL Est GFR ( Amer) >60 (>=60) Est GFR (Non-Af Amer) >60 (>=60) BUN/Creatinine Ratio 20.6 Glucose 140 H (74-106) mg/dL Calcium 9.3 (8.5-10.1) mg/dL Troponin I High Sens 17.6 (4.0-76.1) pg/mL Urine Color Yellow (YELLOW) Urine Clarity Clear (CLEAR) Urine pH 6.0 (5.0-9.0) Ur Specific [place] 1.010 (1.005-1.025) Urine Protein Negative (NEG/TRACE) mg/dL Urine Glucose (UA) Negative (NEGATIVE) mg/dL Urine Ketones Negative (NEGATIVE) mg/dL Urine Occult Blood Negative (NEGATIVE) Urine Nitrite Negative (NEGATIVE) Urine Bilirubin Negative (NEGATIVE) Urine Urobilinogen 0.2 (0.2-1.0) EU/dL Ur Leukocyte Esterase Negative (NEGATIVE) Urine RBC 0-2 (0-2) #/HPF Urine WBC None seen (NONE SEEN) #/HPF Ur Squamous Epith Cells None seen (NONE/RARE) #/LPF Urine Crystals None seen (None Seen) #/HPF Urine Bacteria None seen (NONE SEEN) #/HPF Urine Casts None seen (NONE SEEN) #/LPF Urine Mucus None seen (NONE SEEN) Imaging Data CT brain, chest x-ray: Radiologist's impression: Procedure: CT head/brain wo con INDICATION: 87 years old; Male. Head feels funny . TECHNIQUE: CT Head (ax/cor/sag reformats). Ionizing radiation dose reduced via iterative reconstruction/FBP blend and body size kV/mA adjustment. Comparison: Head CT dated 01/21/2023. FINDINGS: POSTOPERATIVE CHANGES: None. BRAIN PARENCHYMA: There is a focal area of decreased density consistent with an area of chronic infarction adjacent the frontal horn of left lateral ventricle. Superior is new as compared to the prior examination but has a chronic appearance. No intraparenchymal or extra-axial hemorrhage. No mass effect. No midline shift or herniation. Subtle patchy low-density is seen in the white matter without mass effect consistent with small vessel ischemic change. VENTRICLES/EXTRA-AXIAL SPACES: Normal for patient's age. SINUSES/MASTOIDS: The visualized sinuses are clear although these paranasal sinuses are not entirely visible in this routine CT of the head. Mastoids and middle ears are clear. MSK: No displaced or depressed calvarial fracture. OTHER: No hyperdense intraluminal thrombus is present. Vascular calcifications are seen. IMPRESSION: 1. No acute intracranial abnormality. No hemorrhage or mass effect. 2. 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 This is not present in the prior examination but has a chronic appearance. 3. Small vessel ischemic changes. 4. Vascular calcification. Electronically authenticated by: ANGELA TOMAS Date: 04/06/2023 22:56 Procedure: XR chest 1V EXAMINATION: XR chest 1V, , 04/06/2023 10:28 PM EST INDICATION: weak HISTORY: Ordering Provider Reason for Exam: weak Technologist Note: Additional: COMPARISON: Chest x-ray dated 12/27/2022. TECHNIQUE: Chest x-ray: One view. FINDINGS: No pneumothorax, pleural effusion or focal airspace consolidation. Heart is normal in size. Bony thorax is unremarkable. IMPRESSION: No acute cardiopulmonary process. Electronically authenticated by: KENZIE ALONSO Date: 04/06/2023 22:53 ECG Data Attestation: I personally reviewed and interpreted this ECG as follows: (EKG on my interpretation shows normal sinus rhythm with a rate of 77.) Discharge Plan Discharge Chief Complaint: Dizziness Clinical Impression: Weakness Patient Disposition: Home, Self-Care Time of Disposition Decision: 00:47 Condition: Good Mode of Transportation: Private Vehicle Prescriptions / Home Meds: No Action atorvastatin 80 mg tablet 80 mg PO QPM clopidogrel 75 mg tablet 75 mg PO DAILY carvedilol 3.125 mg tablet 3.125 mg PO Q12H lisinopril 5 mg tablet 5 mg PO DAILY fluoxetine 20 mg capsule 20 mg PO DAILY omeprazole 20 mg capsule,delayed release(DR/EC) 20 mg PO DAILY Instructions: Weakness (ED) Stand Alone Forms: Portal Instructions Referrals: MED TUCKER [Primary Care Provider] - 1 week
[2023-04-06 22:20] LABS: Basophils Percent Auto 0.5 % (0.2-2.0); Eosinophils Absolute Auto 0.2 10^3/uL (0.0-0.7); Eosinophils Percent Auto 3.3 % (0.9-7.0); Hematocrit 36.7 % (42.0-54.0); Hemoglobin 12.6 g/dL (14.0-18.0); Immature Granulocytes Abs Auto 0.02 10^3/uL (0.00-0.03); Immature Granulocytes Pct Auto 0.3 % (0.0-0.5); Lymphocytes Absolute Auto 1.5 10^3/uL (1.2-3.8); Mean Corpuscular HGB Conc 34.3 g/dL (29.9-35.2); Mean Corpuscular Hemoglobin 31.5 pg (25.9-34.0); Mean Corpuscular Volume 91.8 fL (80.0-94.0); Mean Platelet Volume 9.1 fL (9.5-13.5); Monocytes Absolute Auto 0.5 10^3/uL (0.3-0.8); Neutrophils Absolute Auto 3.8 10^3/uL (1.4-6.5); Neutrophils Percent Auto 62.9 % (43.0-75.0); Platelet Count 212 10^3/uL (150-450); Red Cell Distribution Width 13.2 % (11.0-15.0)
[2023-04-06 22:37] LABS: Anion Gap 14.4; BUN Creatinine Ratio 20.6; Calcium 9.3 mg/dL (8.5-10.1); Carbon Dioxide 25.4 mmol/L (21.0-32.0); Chloride 101 mmol/L (98-107); Estimated GFR (African America >60 (>=60); Estimated GFR (Non-African Ame >60 (>=60); Glucose 140 mg/dL (74-106); Potassium 3.8 mmol/L (3.5-5.1); Sodium 137 mmol/L (136-145); Troponin I High Sensitivity 17.6 pg/mL (4.0-76.1)
[2023-04-07 00:24] LABS: Bilirubin Urine NEGATIVE (NEGATIVE); Blood Urine NEGATIVE (NEGATIVE); Clarity Urine CLEAR (CLEAR); Color Urine YELLOW (YELLOW); Glucose Urine UA NEGATIVE (NEGATIVE); Ketones Urine NEGATIVE (NEGATIVE); Leukocyte Esterase Urine NEGATIVE (NEGATIVE); Nitrite Urine NEGATIVE (NEGATIVE); Protein Urine NEGATIVE (NEG/TRACE); Urobilinogen Urine 0.2 EU/dL (0.2-1.0)
[2023-04-07 00:37] LABS: Bacteria Urine NONE SEEN #/HPF (NONE SEEN); RBC Urine 0-2 #/HPF (0-2); WBC Urine NONE SEEN #/HPF (NONE SEEN)
[2023-04-07 00:38] LABS: Cast Seen? NONE SEEN #/LPF (NONE SEEN); Crystals Seen? None Seen #/HPF (None Seen); Mucus Urine NONE SEEN (NONE SEEN); Squamous Epithelial Cell Urine NONE SEEN #/LPF (NONE/RARE)
== END 2023-04-07 01:14 | disposition home or self-care (01) ==
PROVIDERS: Emergency Provider Emergency Medicine; PCP Internal Medicine
DX: R53.1 Weakness (principal); Z85.46 Personal history of malignant neoplasm of prostate; Z90.49 Acquired absence of other specified parts of digestive tract; Z79.899 Other long term (current) drug therapy; Z98.1 Arthrodesis status; Z90.89 Acquired absence of other organs; Z87.891 Personal history of nicotine dependence
CPT/HCPCS: 36415; 70450; 71045; 80048; 81001; 84484; 85025; 93005; 99285

== ENCOUNTER 2023-04-17 12:39 | Outpatient (OUT) | payer MEDICARE, OTHER, SELFPAY ==
--- OUTSIDE RECORDS SUMMARY | 2023-04-17 12:44 | XMS_ITS | CCD ---
Author Name Unknown Address [address] [place] [address] Organization [facility] Care Team Providers Care Regional Environmental Manager Name Role Phone CAITLIN, DR JOVEL Primary [...] Care Unavailable MED TUCKER Primary Care Physician [phone] David ANDERSON Attending Unavailable Angela FAUSTIN Attending Unavailable JAK CARLTON Attending Unavailable JAK CARLTON Attending Unavailable MED TUCKER Attending Unavailable MED TUCKER Attending Unavailable Allergies Allergy Classification Reported Allergen(s) Allergy Type Date of Onset Reaction(s) Facility (1 source) Meperidine Drug Allergy 7 [facility] Repository (1 source) Penicillins Drug allergy (disorder) 7 [facility] (1 source) No Known Medication Allergies; Translations: [No Known Medication Allergies] Propensity to adverse reactions (disorder) [facility] Repository Medications Current Medications Medication Drug [...] Vasodilator Start: 04-23-2021 nitroglycerin 0.4 mg SubL Learned mg spray(s), SubLingual, q5min, Refills(s) 0 Start [...] te Episodic/Chronic Other aftercare (1 source) 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; Translations: [OTH GOLF PROFESSIONAL CURRENT DRUG THERAPY] Onset: 12-03-2021 Episodic Other aftercare (1 source) 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; Translations: [PENITENTIARY CURRENT USE OF ASPIRIN] Onset: 12-03-2021 Episodic Residual codes; unclassified (3 sources) Disorientation, unspecified; Translations: [DISORIENTATION UNSPECIFIED] Onset: 11-29-2021 Episodic Unclassified (1 source) Asymptomatic microscopic hematuria 04-23-2021 Results Test Name Value Interpretation Reference Range Facility Office Visiton 02-10-2023 Follow-up visit [id number] Jae Lenz 1935 Date [facility] History Problem Relation Age of Onset Heart attack Other Family Status - Relation Status Age at Other Level of Service:00213 [place] OFFICE/OUTPATIENT ESTABLISHED LOW MDM 20-29 MIN Normal [facility] Physician Orderon 02-03-2023 Physician Order [id number] #[id number] Normal [facility] Office Visiton 12-31-2022 Follow-up visit [id number] Jae Lenz 1935 M Date Provider Department Center 12/31/2022 JAK CALVO Family History Problem Relation Age of Onset Heart attack Other Family Status - Relation Status Age at Other Level of Service:55336 [place] OFFICE/OUTPATIENT NEW MODERATE MDM 45-59 MINUTES Normal [facility] Screenson 07-30-2022 Screens [id number]#[id number]:127 Normal [facility] Patient Educationon 07-30-19 23 Patient Education [...] if anything looks unusual. Men with a vdavxi-njzy-ismjae risk for skin cancer may want to see a office specialist (frog catcher) for an annual body check. What are the benefits of screening? Cancer screening is done to look for cancer in the very early stages, before it spreads and becomes harder to treat and before you would start to notice symptoms. Finding cancer early improves the chances of successful treatment. It ma (more content not included)... Normal [facility] Urology Office/Clinic Noteon 07-29-2022 Urology Office/Clinic Note [...] partner today. Pt has been using a personal fitness trainer to keep his strength. 1. Prostate cancer [...] Contact Information JUDY QUINTANA, Angela Diamond, URL [address] [phone]- Additional Instructions: 6 mos PSA Patient Education [...] q6mo Multi Vitamin+ nitroglycerin 0.4 mg SubL Learned, SubLingual, q5min Omeprazole 20 mg Cap - DR, 20 mg, Oral, Daily Plavix 75 mg Tab, Oral, Daily Tylenol 8 Hour Caplet 650 mg oral tablet, extended release, Oral, q8hr Vitamin D3 Allergies No Known Medication All (more content not included)... [facility] Comment on above: Result Comment: Elec tronically Signed By: JUDY QUINTANA, Angela Diamond\.br\Date and Time Signed: 07/29/22 16:09 EDT\.br\Electronically Co-Signed By: Yessy Hawkins.edson\Date and Time Co-Signed: 07/29/22 15:30 EDT Lab Reportson 07-17-2022 Lab Reports [id number] #[id number]:127 [facility] Patient Correspondenceon Patient Correspondence [id number] #[id number]:127 [facility] CBC AUTO DIFFon 11-29-2021 BASO # 0.0 103/ul Normal 0.0-0.1 [facility] Comment on above: Performed By: #### C BC #### [facility] [address] [place] [address] Dr. Junior Whitlock Basophils/100 WBC (Bld) 0.5 % Normal 0.2-2.0 [facility] Comment on above: Performed By: #### C BC #### [facility] [address] [place] [address] Dr. Junior Whitlock EO # 0.1 103/ul Normal 0.0-0.7 [facility] Comment on above: Performed By: #### C BC #### [facility] [address] [place] [address] Dr. Junior Whitlock Eosinophils/100 WBC (Bld) 1.6 % Normal 0.9-7.0 [facility] Comment on above: Performed By: #### C BC #### [facility] [address] [place] [address] Dr. Junior Whitlock Erythrocyte distribution width (RBC) [Ratio] 13.6 % Normal 11.0-15.0 [facility] Comment on above: Performed By: #### C BC #### [facility] [address] [place] [address] Dr. Junior Whitlock Hematocrit (Bld) [Volume fraction] 36.9 % Critically low 42.0-54.0 [facility] Comment on above: Performed By: #### C BC #### [facility] [address] [place] [address] Dr. Junior Whitlock Hemoglobin (Bld) [Mass/Vol] 12.9 g/dL Critically low 14.0-18.0 [facility] Comment on above: Performed By: #### C BC #### [facility] [address] [place] [address] Dr. Junior Whitlock IG # 0.03 10e3/ul Normal 0.00-0.03 [facility] Comment on above: Performed By: #### C BC #### [facility] [address] [place] [address] Dr. Junior Whitlock IG % 0.5 % Normal 0.0-0.5 [facility] Comment on above: Performed By: #### C BC #### [facility] [address] [place] [address] Dr. Junior Whitlock LYMPH # 1.4 103/ul Normal 1.2-3.8 [facility] Comment on above: Performed By: #### C BC #### [facility] [address] [place] [address] Dr. Junior Whitlock Lymphocytes/100 WBC (Bld) 24.0 % Normal 20.5-60.0 [facility] Comment on above: Performed By: #### C BC #### [facility] [address] [place] [address] Dr. Junior Whitlock MANUAL DIFF REQ NO Normal [facility] Comment on above: Performed By: #### C BC #### [facility] [address] [place] [address] Dr. Junior Whitlock MCH (RBC) [Entitic mass] 31.3 pg Normal 25.9-34.0 [facility] Comment on above: Performed By: #### C BC #### [facility] [address] [place] [address] Dr. Junior Whitlock MCHC (RBC) [Mass/Vol] 35.0 g/dL Normal 29.9-35.2 [facility] Comment on above: Performed By: #### C BC #### [facility] [address] [place] [address] Dr. Junior Whitlock MCV (RBC) [Entitic vol] 89.6 fL Normal 80.0-94.0 [facility] Comment on above: Performed By: #### C BC #### [facility] [address] [place] [address] Dr. Junior Whitlock MONO # 0.5 103/ul Normal 0.3-0.8 [facility] Comment on above: Performed By: #### C BC #### [facility] [address] [place] [address] Dr. Junior Whitlock Monocytes/100 WBC (Bld) 8.5 % Normal 1.7-12.0 [facility] Comment on above: Performed By: #### C BC #### [facility] [address] [address] [address] Junior Whitlock NEUT # 3.6 103/ul Normal 1.4-6.5 [facility] Comment on above: Performed By: #### C BC #### [facility] [address] [address] [address] Junior Whitlock Neutrophils/100 WBC (Bld) 64.9 % Normal 43.0-75.0 [facility] Comment on above: Performed By: #### C BC #### [facility] [address] [address] [address] Junior Whitlock Platelet mean volume (Bld) [Entitic vol] 9.0 fL Critically low 9.5-13.5 [facility] Comment on above: Performed By: #### C BC #### [facility] [address] [place] [address] Dr. Junior Whitlock PLT 198 103/ul Normal 150-450 [facility] Comment on above: Performed By: #### C BC #### [facility] [address] [id number] [address] Junior Whitlock RBC 4.12 106/ul Critically low 4.70-6.10 [facility] Comment on above: Performed By: #### C BC #### [facility] [address] [place] [address] Dr. Junior Whitlock WBC 5.6 103/ul Normal 4.0-11.0 [facility] Comment on above: Performed By: #### C BC #### [facility] [address] [place] [address] STROKE HEAD WOon [...] by: LUIS MARLEY Date: 2021-11-29 16:30 Normal [facility] ER URINE PROFILEon 2 Bilirubin Ql (U) Negative Normal NEGATIVE [facility] Comment on above: Performed By: #### E RUR #### [facility] [address] [place] [address] Dr. Junior Whitlock Clarity (U) CLEAR Normal CLEAR [facility] Comment on above: Performed By: #### E RUR #### [facility] [address] [place] [address] Dr. Junior Whitlock Color (U) YELLOW Normal YELLOW [facility] Comment on above: Performed By: #### E RUR #### [facility] [address] [place] [address] Dr. Junior ANDREW A micrscopic examination will be performed if indicated. Normal [facility] Comment on above: Performed By: #### E RUR #### [facility] [address] [place] [address] Dr. Junior Whitlock Glucose Ql (U) Negative Normal NEGATIVE [facility] Comment on above: Performed By: #### E RUR #### [facility] [address] [place] [address] Dr. Junior Whitlock Hemoglobin Ql (U) Negative Normal NEGATIVE [facility] Comment on above: Performed By: #### E RUR #### [facility] [address] [place] [address] Dr. Junior Whitlock Ketones Ql (U) Negative Normal NEGATIVE [facility] Comment on above: Performed By: #### E RUR #### [facility] [address] [place] [address] Dr. Junior Whitlock LEUKOCYTES Negative Normal NEGATIVE [facility] Comment on above: Performed By: #### E RUR #### [facility] [address] [place] [address] Dr. Junior Whitlock Nitrite Ql (U) Negative Normal NEGATIVE [facility] Comment on above: Performed By: #### E RUR #### [facility] [address] [place] [address] Dr. Junior Whitlock pH (U) 6.0 [pH] Normal 5-9 [facility] Comment on above: Performed By: #### E RUR #### [facility] [address] [place] [address] Dr. Junior Whitlock SPEC GRAVITY 1.020 Normal 1.005-<=1.025 [facility] Comment on above: Performed By: #### E RUR #### [facility] [address] [place] [address] Dr. Junior Whitlock UA PROTEIN Negative Normal NEGATIVE/ TRACE [facility] Comment on above: Performed By: #### E RUR #### [facility] [address] [place] [address] Dr. Junior Whitlock UR MICRO IND NOT INDICATED Normal [facility] Comment on above: Performed By: #### E RUR #### [facility] [address] [place] [address] Dr. Junior Whitlock Urobilinogen Qn (U) 0.2 {Forrest'U}/dL Normal 0.2 - 1. 0 [facility] Comment on above: Performed By: #### E RUR #### [facility] [address] [place] [address] Dr. Junior Whitlock PROF CHEM 8 (BAS METB)on Anion gap [Moles/Vol] 14.7 mmol/L Normal [facility] Comment on above: Performed By: #### B MP #### [facility] [address] [place] [address] Dr. Junior Whitlock Calcium [Mass/Vol] 8.7 mg/dL Normal 8.5-10.1 [facility] Comment on above: Performed By: #### B MP #### [facility] [address] [address] [address] Junior Whitlock Chloride [Moles/Vol] 103 mmol/L Normal 98-107 [facility] Comment on above: Performed By: #### B MP #### [facility] [address] [address] [address] Junior Whitlock CO2 [Moles/Vol] 25.4 mmol/L Normal 21.0-32.0 [facility] Comment on above: Performed By: #### B MP #### [facility] [address] [address] [address] Junior Whitlock Creatinine [Mass/Vol] 0.92 mg/dL Normal 0.70-1.30 [facility] Comment on above: Performed By: #### B MP #### [facility] [address] [address] [address] Junior Whitlock EGFR-AF TAIWANESE >60 Normal >=60 [facility] Comment on above: Performed By: #### B MP #### [facility] [address] [address] [address] Junior Whitlock EGFR-NON AF TAIWANESE >60 Normal >=60 [facility] Comment on above: Performed By: #### B MP #### [facility] [address] [address] [address] Junior Whitlock Glucose [Mass/Vol] 152 mg/dL Critically high 74-106 [facility] Comment on above: Performed By: #### B MP #### [facility] [address] [address] [address] Junior Whitlock Potassium [Moles/Vol] 4.1 mmol/L Normal 3.5-5.1 [facility] Comment on above: Performed By: #### B MP #### [facility] [address] [place] [address] Dr. Junior Whitlock Sodium [Moles/Vol] 139 mmol/L Normal 136-145 [facility] Comment on above: Performed By: #### B MP #### [facility] [address] [place] [address] Dr. Junior Whitlock Urea nitrogen [Mass/Vol] 20.0 mg/dL Critically high 7.0-18.0 [facility] Comment on above: Performed By: #### B MP #### [facility] [address] [place] [address] Dr. Junior Whitlock Urea nitrogen/Creatinine [Mass ratio] 21.7 mg/mg Normal [facility] Comment on above: Performed By: #### B MP #### [facility] [address] [place] [address] Dr. Junior Whitlock PROTIMEon 11-29-2021 INR Coag (PPP) [Relative time] 1.04 {INR} Normal [facility] Comment on above: Performed By: #### P T, PTT #### [facility] [address] [place] [address] Dr. Junior Whitlock INR GUIDELINES SEE BELOW Normal [facility] Comment on above: Result Comment: ERA RED INR: 2.0 - 3.0 CONDITIONS NOT LISTED BELOW 2.5 - 3.5 FOR PROSTHETIC HEART VALVE REPLACEMENT 2.5 - 3.5 RECURRENT THROMBOSIS Performed By: #### P T, PTT #### [facility] [address] [place] [address] Dr. Junior Whitlock PT Coag (PPP) [Time] 11.2 s Normal 9.0-11.6 [facility] Comment on above: Performed By: #### P T, PTT #### [facility] [address] [place] [address] Dr. Junior Whitlock PTTon 11-29-2021 aPTT Coag (Bld) [Time] 26.6 s Normal 22.3-36.2 [facility] Comment on above: Performed By: #### P T, PTT #### [facility] [address] [place] [address] Dr. Junior Whitlock Complete Blood Count with Au to Diffon 03-20-2021 Basophils (Bld) [#/Vol] 0.04 10*3/uL Normal 0.00-0.20 [facility] Supervisor [employer] Comment on above: Performed By: #### C BCAD, CMP, LIPD #### [facility] [address], [place] [id number] Basophils/100 WBC (Bld) 0.7 % Normal [facility] Specialist Comment on above: Performed By: #### C BCAD, CMP, LIPD #### [facility] [address], [place] [id number] Eosinophils (Bld) [#/Vol] 0.09 10*3/uL Normal 0.02-0.50 [facility] Specialist Comment on above: Performed By: #### C BCAD, CMP, LIPD #### [facility] [address], [place] [id number] Eosinophils/100 WBC (Bld) 1.6 % Normal [facility] Specialist Comment on above: Performed By: #### C BCAD, CMP, LIPD #### [facility] [address], [place] [id number] Erythrocyte distribution width (RBC) [Ratio] 13.4 % Normal 11.0-15.0 [facility] Specialist Comment on above: Performed By: #### C BCAD, CMP, LIPD #### [facility] [address], [place] [id number] Hematocrit (Bld) [Volume fraction] 39.6 % Normal 38.5-50.0 [facility] Specialist Comment on above: Performed By: #### C BCAD, CMP, LIPD #### [facility] [address], [place] [id number] Hemoglobin (Bld) [Mass/Vol] 13.2 g/dL Normal 13.0-17.1 [facility] Specialist Comment on above: Performed By: #### C BCAD, CMP, LIPD #### [facility] [address], [place] [id number] Lymphocytes (Bld) [#/Vol] 1.5 10*3/uL Normal 0.9-3.9 [facility] Specialist Comment on above: Performed By: #### C BCAD, CMP, LIPD #### [facility] [address], [place] [id number] Lymphocytes/100 WBC (Bld) 27.3 % Normal [facility] Specialist Comment on above: Performed By: #### C BCAD, CMP, LIPD #### [facility] [address], [place] [id number] MCH (RBC) [Entitic mass] 30.7 pg Normal 27.0-33.0 [facility] Comment on above: Performed By: #### C BCAD, CMP, LIPD #### [facility] [address], [place] [id number] MCHC (RBC) [Mass/Vol] 33.3 g/dL Normal 32.0-36.0 [facility] Comment on above: Performed By: #### C BCAD, CMP, LIPD #### [facility] [address], [place] [id number] MCV (RBC) [Entitic vol] 92 fL Normal 80-100 [facility] Specialist Comment on above: Performed By: #### C BCAD, CMP, LIPD #### [facility] [address], [place] [id number] Monocytes (Bld) [#/Vol] 0.5 10*3/uL Normal 0.2-0.9 [facility] Comment on above: Performed By: #### C BCAD, CMP, LIPD #### [facility] [address], [place] [id number] Monocytes/100 WBC (Bld) 8.2 % Normal [facility] Comment on above: Performed By: #### C BCAD, CMP, LIPD #### [facility] [address], [place] [id number] Neutrophils (Bld) [#/Vol] 3.5 10*3/uL Normal 1.5-7.8 [facility] Comment on above: Performed By: #### C BCAD, CMP, LIPD #### [facility] [address], [place] [id number] Neutrophils/100 WBC (Bld) 62.0 % Normal [facility] Comment on above: Performed By: #### C BCAD, CMP, LIPD #### [facility] [address], [place] [id number] Platelet mean volume (Bld) [Entitic vol] 9.40 fL Normal 7.50-12.50 [facility] Specialist Comment on above: Performed By: #### C BCAD, CMP, LIPD #### [facility] [address], [place] [id number] Platelets (Bld) [#/Vol] 205 10*3/uL Normal 140-400 [facility] Supervisor [employer] Comment on above: Performed By: #### C BCAD, CMP, LIPD #### [facility] [address], [place] [id number] RBC (Bld) [#/Vol] 4.30 10*6/uL Normal 4.20-5.80 [facility] Specialist Comment on above: Performed By: #### C BCAD, CMP, LIPD #### [facility] [address], [place] [id number] RDW-SD 44.6 fL Normal 37.0-50.0 [facility] Specialist Comment on above: Performed By: #### C BCAD, CMP, LIPD #### [facility] [address], [place] [id number] WBC (Bld) [#/Vol] 5.6 10*3/uL Normal 3.8-11.0 [facility] Supervisor Contact [employer] Comment on above: Performed By: #### C BCAD, CMP, LIPD #### [facility] [address], [place] [id number] Comprehensive Metabolic Pane [facility] 03-20-2021 Albumin [Mass/Vol] 4.6 g/dL Normal 3.6-5.1 [facility] Supervisor [employer] Comment on above: Performed By: #### C BCAD, CMP, LIPD #### [facility] [address], [place] [id number] Albumin/Globulin [Mass ratio] 2.1 {ratio} Normal 1.0-2.5 [facility] Supervisor [employer] Comment on above: Performed By: #### C BCAD, CMP, LIPD #### [facility] [address], [place] [id number] ALP [Catalytic activity/Vol] 75 U/L Normal 40-129 [facility] Supervisor [employer] Comment on above: Performed By: #### C BCAD, CMP, LIPD #### [facility] [address] [place], [place] [id number] ALT [Catalytic activity/Vol] 17 U/L Normal 9-46 [facility] Comment on above: Result Comment: 02/28 Female reference range changed. Performed By: #### C BCAD, CMP, LIPD #### [facility] [address] [place], [place] [id number] Anion gap [Moles/Vol] 18 mmol/L Normal 12-20 [facility] Comment on above: Result Comment: Effe ctive 04/05/2019 reference range changed. Performed By: #### C BCAD, CMP, LIPD #### [facility] [address] [place], [place] [id number] AST [Catalytic activity/Vol] 22 U/L Normal 10-40 [facility] Comment on above: Performed By: #### C BCAD, CMP, LIPD #### [facility] [address] [facility] [place] [id number] Bilirubin [Mass/Vol] 0.42 mg/dL Normal 0.30-1.20 [facility] Comment on above: Performed By: #### C BCAD, CMP, LIPD #### [facility] [address] [facility] [place] [id number] BUN/CREA 19 Ratio Normal 6-22 [facility] Comment on above: Performed By: #### C BCAD, CMP, LIPD #### [facility] [address] [facility] [place] [id number] Calcium [Mass/Vol] 9.7 mg/dL Normal 8.6-10.2 [facility] Comment on above: Performed By: #### C BCAD, CMP, LIPD #### [facility] [address] [place], [place] [id number] Chloride [Moles/Vol] 103 mmol/L Normal 98-107 [facility] Comment on above: Performed By: #### C BCAD, CMP, LIPD #### [facility] [address] [facility] [facility] [address] [place] [id number] CO2 [Moles/Vol] 24 mmol/L Normal 20-31 [facility] Supervisor [employer] Comment on above: Performed By: #### C BCAD, CMP, LIPD #### [facility] [address], [place] [id number] Creatinine [Mass/Vol] 0.9 mg/dL Normal 0.7-1.4 [facility] Specialist Comment on above: Performed By: #### C BCAD, CMP, LIPD #### [facility] [address], [place] [id number] eGFRAA 93 mL/min/1.73m2 Normal >60 [facility] Specialist Comment on above: Performed By: #### C BCAD, CMP, LIPD #### [facility] [address], [place] [id number] eGFRNAA 77 mL/min/1.73m2 Normal >60 [facility] Specialist Comment on above: Performed By: #### C BCAD, CMP, LIPD #### [facility] [address], [place] [id number] Globulin (S) [Mass/Vol] 2.2 g/dL Normal 1.9-3.7 [facility] Specialist Comment on above: Performed By: #### C BCAD, CMP, LIPD #### [facility] [address], [place] [id number] Glucose [Mass/Vol] 141 mg/dL High 65-99 [facility] Supervisor [facility] [employer] Comment on above: Result Comment: For FASTING Glucose --- ADA reference ranges: Normal 65-99 mg/dl Prediabetes 100-125 Diabetes >/= 126 Performed By: #### C BCAD, CMP, LIPD #### [facility] [address], [place] [id number] Potassium [Moles/Vol] 4.1 mmol/L Normal 3.5-5.5 [facility] Comment on above: Performed By: #### C BCAD, CMP, LIPD #### [facility] [address], [place] [id number] Protein [Mass/Vol] 6.8 g/dL Normal 6.1-8.1 [facility] Supervisor Contact [facility] Comment on above: Performed By: #### C BCAD, CMP, LIPD #### [facility] [address], [place] [id number] Sodium [Moles/Vol] 141 mmol/L Normal 135-146 [facility] Comment on above: Performed By: #### C BCAD, CMP, LIPD #### [facility] [address], [place] [id number] Urea nitrogen [Mass/Vol] 18 mg/dL Normal 7-25 [facility] Specialist Comment on above: Performed By: #### C BCAD, CMP, LIPD #### [facility] [address], [place] [id number] Hemoglobin A1Con 03-20-2021 EAG 134.11 Normal [facility] Comment on above: Performed By: #### A 1C #### [facility] [address], [place] [id number] HbA1c (Bld) [Mass fraction] 6.3 % High 4.0-6.0 [facility] Comment on above: Performed By: #### A 1C #### [facility] [address], [place] [id number] Lipid Panelon 03-20-2021 Cholesterol [Mass/Vol] 177 mg/dL Normal 125-200 [facility] Specialist Comment on above: Result Comment: Low risk < 200mg/dL Borderline risk 201-239 mg/dl High risk > or equal to 240 Performed By: #### C BCAD, CMP, LIPD #### [facility] [address], [place] [id number] Cholesterol in HDL [Mass/Vol] 36 mg/dL Low >40 [facility] Specialist Comment on above: Result Comment: High Cardiovascular Risk HDL <40 mg/dL Low Cardiovascular Risk HDL > or equal to 60 mg/dl Performed By: #### C BCAD, CMP, LIPD #### [facility] [address], [place] [id number] Cholesterol in LDL [Mass/Vol] 70 mg/dL Normal [facility] Comment on above: Result Comment: LDL ATP III CLASSIFICATION LDL less than 100 mg/dl Optimal LDL 100-129 mg/dl Near or above optimal LDL 130-159 Borderline high LDL 160-189 High LDL greater than 189 mg/dl Very High Performed By: #### C BCAD, CMP, LIPD #### [facility] [address], [place] [id number] Cholesterol in VLDL [Mass/Vol] 71 mg/dL Normal [facility] Specialist Comment on above: Performed By: #### C BCAD, CMP, LIPD #### [facility] [address], [place] [id number] Cholesterol.total/Cho lesterol in HDL [Mass ratio] 5 {ratio} Normal [facility] Specialist Comment on above: Performed By: #### C BCAD, CMP, LIPD #### [facility] [address], [place] [id number] Triglyceride [Mass/Vol] 357 mg/dL High 30-150 [facility] Supervisor [facility] Comment on above: Result Comment: TRIG ATPIII CLASSIFICATIONS TRIG less than 150 mg/dl Normal TRIG 150-199 mg/dl Borderline High TRIG 200-500 mg/dl High TRIG greather than 500 mg/dl Very High Performed By: #### C BCAD, CMP, LIPD #### [facility] [address], [place] [id number] Prostatic Specific Antigen, Totalon 03-20-2021 TPSA 0.023 ng/mL Normal <4.000 [facility] Specialist Comment on above: Result Comment: PSA Test Method: ECLIA/Bijal e 601 Performed By: #### P SA #### [facility] [address], [place] [id number] CNOVon 05-23-2020 CNOV Office Visit (PUNEETTSA) JAE LENZ ([id number]) 1935 M Date Time Provider Department 05/23/20 [...] Status Change MEDICATIONS: GLUCOSAMINE/CHONDROI TIN/C/DEACON (GLUCOSAM GOODMAN MIK-[id number]-[id number] ORAL) Take by mouth. FLUoxetine HCl 20 [...] 1 year for follow-up. Signed by: MD Bozena Pemberton LPN, RN 05/23/2020 3:42 PM Signed AUA= 2 Referring Provider: Rani BHAKTA [[id number]] Allergies As of Date: 05/23/2020 Noted Allergy [...] neoplasm of prostate (HCC) [C61] Order(s):PSA (OUTSIDE) [7848790] Order #: [id number] PSA/PROSTSPECAG DIAG [SQPSA] Order #: [id number] FUTURE Prescriptions as of 05/23/2020 Sig: GLUCOSAM GOODMAN [id number]-M* Take by mouth. FLUOXETINE 20 MG TABLET [...] 09/12/2015 Super (more content not included)... Normal [facility] Vital Signs Date Time Vital Sign Value Performing Clinician Sukhdeep montilla 07-29-2022 14:31-0400 Blood Pressure Location [facility] 07-29-2022 14:31-0400 Diastolic blood pressure 83 mm[Hg] [facility] 07-29-2022 14:31-0400 Heart rate 82 /min [facility] 07-29-2022 14:31-0400 Systolic blood pressure 139 mm[Hg] [facility] Encounters Encounter Date Encounter Type Care Provider Facility Start: 04-22-2023 ambulatory David Ashley ty:SAVANNAH Castro Start: 04-14-2023 End: 04-14-2023 ambulatory MED TUCKER Not Available Start: 03-03-2023 End: 03-03-2023 ambulatory MED TUCKER Not Available Start: 02-10-2023 End: 02-10-2023 ambulatory [facility] Start: 12-31-2022 End: 12-31-2022 ambulatory JAK CARLTON [facility] Start: 07-29-2022 End: 07-30-2022 ambulatory Angela FAUSTIN Facility:[facility] Start: 07-29-2022 End: 07-29-2022 Patient encounter procedure Angela FAUSTIN [facility] Start: 07-16-2022 End: 07-17-[address] ANGELA FAUSTIN Facility:[facility] Start: 11-29-2021 End: 11-29-[address] MED TUCKER Facility:[facility] Start: 10-25-2021 End: 10-26-[address] ANGELA FAUSTIN Facility:[facility] Procedures Date Procedure Procedure Detail Performing Clinician Start: 07-16-[address] MED TUCKER Comment on above: Performed By: #### P SAD #### [facility] [address] [place] [address] Dr. Junior Whitlock Start: 10-25-[address] MED TUCKER Comment on above: Performed By: #### P SAD #### [facility] [address] [place] [address] Dr. Junior Whitlock Start: 05-20-2014 Transrectal biopsy o f prostate using ultrasound guidance [facility] Start: 03-31-2014 Teleradiotherapy procedure [facility] Start: 12-29-2006 Intracavitary brachytherapy [facility] Start: 12-10-2006 Transrectal biopsy o f prostate using ultrasound guidance [facility] Immunizations Immunization Date Immunization Notes Care Provider Fa [facility] 02-04-2022 influenza virus vaccine, unspecified formulation [facility] 02-02-2022 SARS-CoV-2 (COVID-19 ) [id number] [facility] 07-17-2021 SARS-CoV-2 mRNA (bedklctytqf-npmy-vzcir se) vaccine [employer] [facility] 02-13-2021 influenza virus vaccine, unspecified formulation [facility] 12-26-2020 SARS-CoV-2 (COVID-19 ) mRNA BNT-162b2 vax [facility] 05-17-2020 SARS-CoV-2 (COVID-19 ) mRNA BNT-162b2 vax [facility] Comment on above: Result Comment: 2022: [id number] 05-11-2020 SARS-CoV-2 (COVID-19 ) mRNA-1273 vaccine [facility] 04-26-2020 SARS-CoV-2 (COVID-19 ) mRNA BNT-162b2 vax [facility] Comment on above: Result Comment: 2022: [id number] 04-13-2020 SARS-CoV-2 (COVID-19 ) mRNA-1273 vaccine [facility] 12-02-2019 influenza virus vaccine, unspecified formulation [facility] 02-10-2019 zoster vaccine recombinant [employer] [facility] 01-28-2019 influenza virus vaccine, unspecified formulation [facility] 12-29-2018 influenza virus vaccine, live, attenuated, for intranasal use [facility] 11-12-2018 zoster vaccine recombinant [facility] 12-25-2017 influenza virus vaccine, unspecified formulation [facility] 01-24-2017 influenza virus vaccine, unspecified formulation [facility] 06-21-2015 pneumococcal conjuga te vaccine, 13 valent [facility] 05-12-2014 zoster vaccine, live [facility] 05-01-2014 influenza virus vaccine, unspecified formulation [facility] Payers Date Payer Category Payer Medicare [id number] 1957 Unknown [id number] 1935 Unknown [id number] 2.16.84 [id number] 1935 Unknown [id number] 2.16.84 [id number] 1935 Unknown [id number] 2.16.84 [id number] 1935 Unknown [id number] 2.16.8 [id number] 1935 Unknown [id number] 2.16.8 [id number] 1935 Unknown [id number] 2.16.84 [id number] 1935 Unknown [id number] Social History Date Type Detail Facility Start: 07-29-2022 Tobacco smoking status Never s moked tobacco (finding) [facility] Tobacco smoking status Never [facility] Sex Assigned At Male [facility] Functional Status Date Assessment Result Facility 07-29-2022 Functional Status N/A [facility] Progress note 02-10-2023 Note Date & Type Note Facility 02-10-2023 Note Patient here for fol low up stress test. No chest pain or shortness of breath. Fatigued per daughter. [facility] Progress note 02-10-2023 Note Date & Type Note Facility 02-10-2023 Note Cardiology Clinic No te Chief Complaint: chest pain HPI: Jae Lenz is a 87 y.o. 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 Impression: -CAD with TYPECASTING MACHINE OPERATOR of LAD, PCI of D1. No reversible [...] if needed Jak Carlton MD Interventional Cardiology [facility] Progress note 12-31-2022 Note Date & Type Note Facility 12-31-2022 Note Cardiology Clinic No te Chief Complaint: chest pain HPI: Jae Lenz is a 87 y.o. 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 Impression: -CAD with TYPECASTING MACHINE OPERATOR of LAD, PCI of D1 -Chest pain, [...] or concerns. Jak Carlton MD Interventional Cardiology [facility] Progress note 12-31-2022 Note Date & Type Note Facility 12-31-2022 Note New patient here to re-establish care for CAD and chest pain. He was seen in [facility] ED last week for chest pain. Daughter [...] All other systems reviewed and are negative. [facility] Hospital Discharge instructions 07-29-2022 Note Date [...] if anything looks unusual. Men with a aujndz-dyov-xbkztm risk for skin cancer may want to see a office specialist (frog catcher) for an annual body check. What are the benefits of screening? Cancer screening is done to look for cancer in the very early stages, before it spreads and becomes harder to treat and before you would start to notice symptoms. Finding cancer early improves the chances of successful treatment. It may save your life. Where to find more information [place] [employer]: www.cancer.org Centers for Disease Control and Prevention: www.cdc.gov National Cancer Garner: www.cancer.gov Contact a health care provider if: [...] provider. Document Revised: 08/13/2021 Document Reviewed: 02/11/2020 250ok Patient Education 2022 [employer]. Follow Up Care 10/29/2021 15:06:20 With:JUDY QUINTANA, Angela Diamond, URL Address: [address] [place] [phone]- When: Unknown [facility] Progress note 05-23-2020 Note Date & Type Note Facility 05-23-2020 Note HNO ID: [id number] Author: Rani Bhakta Service: ? Author Type: Physician Type: Progress Notes Filed: 05/25/2020 3:47 PM Note Text: Radiation Oncology - Follow Up Note PATIENT NAME: Jae Lenz PATIENT Diagnosis: Prostate cancer Jaimie 8 adenocarcinoma Stage: Stage II [place] 8 adenocarcinoma prostate now with evidence of [...] Mental Status Change MEDICATIONS: GLUCOSAMINE/CHONDROITIN/C/DEACON (GLUCOSAM GOODMAN [id number] ORAL) Take by mouth. FLUoxetine HCl 20 [...] for follow-up. Signed by: Rani Bhakta MD [facility] Evaluation + Plan note Note Date & Type Note Facility Evaluation + Plan note Future Appointments Appointment Date:02/17/2023 02:45:00 PM Scheduled Provider:Angela FAUSTIN MD Location:[facility] Appointment Type:URO Office Visit Diagnostic Tests PendingPSA Total 07/29/22 [facility] Hospital course Narrative Note Date & Type Note Facility Hospital course Narrative No data available for this section [facility] Progress note Note Date & Type Note Facility Progress note No data available for this section [facility] [employer] Summary Purpose Family History No Family History [...] section and content) DATE CREATED AUTHOR 03/21/2021 [facility] dical Specialist DATE CREATED AUTHOR AUTHOR'S ORGANIZ ATION 04/26/2021 [facility] DATE CREATED AUTHOR AUTHOR'S ORGANIZ ATION 07/21/2022 [facility] DATE CREATED AUTHOR AUTHOR'S ORGANIZ ATION 02/03/2023 [facility] DATE CREATED AUTHOR AUTHOR'S ORGANIZ ATION 02/11/2023 [facility] DATE CREATED AUTHOR AUTHOR'S ORGANIZ ATION 04/15/2023 [facility] dical Specialists EPIC Patient Care team informatio n (unrecognized section and content) Personnel Name: MED TUCKER MD Address: Address: [address] [place] [address] FOR RECORDS PERTAINING TO PATIENTS WHO ARE [...] BE BASED ON THE PRIMARY CLINICAL RECORDS. [facility]. provides no warranty or guarantee of the accuracy or completeness of information in this document.
[2023-04-17 14:47] LABS: Prostate Specific Antigen Dx <0.13 ng/mL (<=4.00)
== END 2023-04-17 12:40 | disposition home or self-care (01) ==
LOC: LAB 12:41
PROVIDERS: PCP Internal Medicine; Visit Provider Urology
DX: C61 Malignant neoplasm of prostate (principal)
CPT/HCPCS: 36415; 84153